=== PATIENT | female | born 1955 | race Caucasian/White ===

== ENCOUNTER 2019-08-26 14:12 | Outpatient (CLI) | payer MEDICARE, OTHER, SELFPAY ==
--- NOTE | ~2019-08-26 | MM_ITS ---
EXAMINATION: MM screening yony BI w mandy HISTORY: Screening mammogram TECHNIQUE: Craniocaudal and mediolateral oblique 3-D tomosynthesis images were obtained and synthetic 2-D images were generated. CAD analysis was submitted and interpreted. COMPARISON: Comparison to multiple prior studies sequentially, with oldest reviewed study dated 03/15. BREAST PARENCHYMAL COMPOSITION: The breasts are heterogeneously dense, which may obscure small masses . FINDINGS: There is no evidence of suspicious mass, calcification, or architectural distortion to sugg est malignancy in either breast. There has been no suspicious interval change. IMPRESSION: 1. No mammographic evidence of malignancy. 2. Recommend routine screening mammography in one year. BI-RADS Category 1: Negative Reviewed, dictated and finalized at location A. 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
--- NOTE | ~2019-08-26 | DEXA_ITS ---
Bone Density Report Name: Hue Batista Age: 63 Sex: Female Ethnicity: White Date of : 1955 Indication: postmenopausal; asthma or emphysema; hysterectomy; Referring Provider: DARYA, SAAD Ivey Study: Bone densitometry was performed. Exam Date: August 26, 2019 Accession number: [id number] Bone Density: Region BMD T-score Z-score Classification AP Spine (L1-L4) 1.033 -0.1 1.7 Normal Femoral Neck (Left) 0.782 -0.6 0.9 Normal Total Hip (Left) 0.960 0.1 1.4 Normal Total Hip Bilateral Avg 0.910 -0.3 1.0 Normal Femoral Neck (Right) 0.741 -1.0 0.6 Normal Total Hip (Right) 0.860 -0.7 0.6 Normal World Health Organization criteria for BMD impression classify patients as: Normal (T-score at or above -1.0), Osteopenia (T-score between -1.0 and -2.5), or Osteoporosis (T-score at or below -2.5). 10-year Fracture Risk: FRAX not reported because: All T-scores for Spine Total, Hip Total, Femoral Neck at or above -1.0 Clinical Information Provided by Patient: Has the following medical conditions: Asthma or Emphysema, Hysterectomy Patient maximum height was 64.5 Menopause Age: 48 No regular weight bearing exercise Drinks caffeinated beverages Onset of menses at age 12 Number of children 2 Impression: The patient has normal bone mass. Discussion: BONE DENSITY IS ABOVE THE MINIMUM DESIRABLE LEVEL AT ALL SKELETAL SITES TESTED. This patient?s bone mineral density is above the minimum desirable level (T-score -1.0 or better) at all sites measured. The patient should follow a healthful lifestyle (good nutrition with adequate calcium and vitamin D, and appropriate weight-bearing exercise). Follow-Up: Consider repeating this study in 5 years or sooner if there is some new clinical indication. Reported by: ROXY on 08/26/2019 2:55:00 PM. Reviewed, dictated and finalized at location ASangita JORGENSEN
== END 2019-08-26 14:13 | disposition home or self-care (01) ==
LOC: ANHIMG 14:21
PROVIDERS: PCP Family Medicine; Visit Provider Family Medicine
DX: Z12.31 Encounter for screening mammogram for malignant neoplasm of breast (principal); Z78.0 Asymptomatic menopausal state
CPT/HCPCS: 77063; 77067; 77080

== ENCOUNTER 2021-01-25 10:20 | Outpatient (CLI) | payer MEDICARE, OTHER, SELFPAY ==
--- NOTE | ~2021-01-25 | MM_ITS ---
EXAMINATION: MM screening yony BI w mandy HISTORY: Screening mammogram TECHNIQUE: Craniocaudal and mediolateral oblique 3-D tomosynthesis images were obtained and synthetic 2-D images were generated. CAD analysis was submitted and interpreted. COMPARISON: 08/26/2019, 03/28/2018 bilateral digital screening mammogram examinations BREAST PARENCHYMAL COMPOSITION: The breasts are heterogeneously dense, which may obscure small masses . FINDINGS: There is no evidence of suspicious mass, calcification, or architectural distortion to sugg est malignancy in either breast. There has been no suspicious interval change. IMPRESSION: 1. No mammographic evidence of malignancy. 2. Recommend routine screening mammography in one year. BI-RADS Category 1: Negative Reviewed, dictated and finalized at location A.
== END 2021-01-25 10:21 | disposition home or self-care (01) ==
LOC: ANHIMG 10:26
PROVIDERS: PCP Family Medicine; Visit Provider Family Medicine
DX: Z12.31 Encounter for screening mammogram for malignant neoplasm of breast (principal)
CPT/HCPCS: 77063; 77067

== ENCOUNTER 2021-11-16 14:35 | Outpatient (CLI) | payer MEDICARE, OTHER, SELFPAY ==
--- NOTE | ~2021-11-16 | XR_ITS ---
EXAM: XR hand RT min 3V HISTORY: PAIN IN RIGHT FINGERS/THUMB, NO INJURY . COMPARISON: None available. FINDINGS: Borderline decreased mineralization. No fracture or dislocation. No lytic or blastic lesio n. Moderate joint space narrowing and osteophytosis at the first interphalangeal joint and second DIP . Mild joint space narrowing in the remaining DIPs, proximal interphalangeal joints, the third MCP, t riscaphe and trapeziometacarpal joints. Ulnar negative variance. Subchondral cysts in the lunate and capitate. No erosion or periosteal change. Soft tissues within normal limits. 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 Other mild scattered degenera tive changes described above. Reviewed, dictated and finalized at location K. 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 Other m ild scattered degenerative changes described above.
== END 2021-11-16 14:36 | disposition home or self-care (01) ==
PROVIDERS: PCP Family Medicine; Visit Provider Family Medicine
DX: M19.041 Primary osteoarthritis, right hand (principal)
CPT/HCPCS: 73130

== ENCOUNTER 2022-06-29 09:04 | Outpatient (CLI) | payer MEDICARE, OTHER, SELFPAY ==
--- NOTE | ~2022-06-29 | MM_ITS ---
EXAMINATION: MM screening yony BI w mandy HISTORY: Screening mammogram TECHNIQUE: Craniocaudal and mediolateral oblique 3-D tomosynthesis images were obtained and synthetic 2-D images were generated. CAD analysis was submitted and interpreted. COMPARISON: 01/25/2021, 08/26/2019, 03/28/2018 bilateral screening mammogram examinations BREAST PARENCHYMAL COMPOSITION: The breasts are heterogeneously dense, which may obscure small masses . FINDINGS: There is no evidence of suspicious mass, calcification, or architectural distortion to sugg est malignancy in either breast. There has been no suspicious interval change. IMPRESSION: 1. No mammographic evidence of malignancy. 2. Recommend routine screening mammography in one year. BI-RADS Category 1: Negative Reviewed, dictated and finalized at location A. 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
== END 2022-06-29 09:05 | disposition home or self-care (01) ==
PROVIDERS: PCP Family Medicine; Visit Provider Physician Assistant
DX: Z12.31 Encounter for screening mammogram for malignant neoplasm of breast (principal)
CPT/HCPCS: 77063; 77067

== ENCOUNTER 2023-11-22 10:15 | Outpatient (CLI) | payer MEDICARE, OTHER, SELFPAY ==
--- NOTE | ~2023-11-22 | MM_ITS ---
EXAMINATION: MM screening yony BI w mandy HISTORY: Screening TECHNIQUE: Craniocaudal and mediolateral oblique 3-D tomosynthesis images were obtained and synthetic 2-D images were generated. CAD analysis was submitted and interpreted. COMPARISON: Comparison to multiple prior studies sequentially, with oldest reviewed study dated 03/15. BREAST PARENCHYMAL COMPOSITION: Dense: The breasts are heterogeneously dense, which may obscure small masses FINDINGS: There are bilateral developing subareolar asymmetries. There are no suspicious calcificatio ns. No architectural distortion. IMPRESSION: 1. Developing bilateral subareolar asymmetries. 2. Additional mammographic views and possible breast ultrasound are recommended. BI-RADS Category 0: Incomplete: Needs additional imaging evaluation. Reviewed, dictated and finalized at location A. IMPRESSION: 1. Developing bilateral subareolar asymmetries. 2. Additional mammographic views and possible breast ultrasound are recommended . BI-RADS Category 0: Incomplete: Needs additional imaging evaluation.
== END 2023-11-22 10:16 | disposition home or self-care (01) ==
PROVIDERS: PCP Family Medicine; Visit Provider Family Medicine
DX: Z12.31 Encounter for screening mammogram for malignant neoplasm of breast (principal); R92.8 Other abnormal and inconclusive findings on diagnostic imaging of breast
CPT/HCPCS: 77063; 77067

== ENCOUNTER 2023-12-12 10:45 | Outpatient (CLI) | payer MEDICARE, OTHER, SELFPAY ==
--- NOTE | ~2023-12-12 | MMUS_ITS ---
EXAMINATION: MM diagnostic yony BI w mandy, US breast BI complete HISTORY: Follow-up breast asymmetries TECHNIQUE: Additional 3-D tomosynthesis images of the breasts were performed and synthetic 2-D images were generated. CAD analysis was submitted and interpreted. High resolution complete bilateral breas t ultrasound was performed. COMPARISON: Comparison to multiple prior studies sequentially, with oldest reviewed study dated 2016 BREAST PARENCHYMAL COMPOSITION: Dense: The breasts are heterogeneously dense, which may obscure small masses FINDINGS: MAMMOGRAPHIC FINDINGS: There are no suspicious masses, calcifications or architectural distortion in either breast to sugges t malignancy. ULTRASOUND: Complete bilateral US of all 4 quadrants of the breasts and retroareolar region was reviewed. In the left breast at 12:00, 1 cm from the nipple, there is an irregular shaped hypoechoic 6 mm mass which i s partially cystic and partially solid. There are no posterior features or internal vascularity. No s onographic abnormality of the right breast to suggest malignancy. IMPRESSION: 1. Complex heterogeneous 6 mm left breast mass at 12:00, 1 cm from the nipple. 2. Ultrasound-guided left breast biopsy recommended. BI-RADS category 4, suspicious findings. Reviewed, dictated and finalized at location B. IMPRESSION: 1. Complex heterogeneous 6 mm left breast mass at 12:00, 1 cm from the nipple. 2. Ultrasound-guided left breast biopsy recommended. BI-RADS category 4, suspicious findings.
== END 2023-12-12 10:46 | disposition home or self-care (01) ==
LOC: ANHIMG 10:49
PROVIDERS: PCP Family Medicine; Visit Provider Family Medicine
DX: R92.8 Other abnormal and inconclusive findings on diagnostic imaging of breast (principal)
CPT/HCPCS: 76641; 77062; 77066; G0279

== ENCOUNTER 2024-01-23 08:46 | Outpatient (CLI) | payer MEDICARE, OTHER, SELFPAY ==
--- NOTE | ~2024-01-23 | MMUS_ITS ---
MM post biopsy diagnostic LT, US breast biopsy LT w image EXAMINATION: US GUIDED NEEDLE BIOPSY WITH VACUUM ASSISTANCE DATE: 01/23/2024 11:04 CDT INDICATION: Left breast mass seen on prior examination. Ultrasound-guided core biopsy is requested t o evaluate for malignancy. BREAST PARENCHYMAL COMPOSITION: Dense: The breasts are heterogeneously dense, which may obscure small masses TECHNIQUE AND FINDINGS: The risks and potential benefits of the procedure were discussed with the patient, and written inform ed consent was obtained. After sterile preparation of the left breast, 1% lidocaine was utilized for local anesthesia. 1% lidocaine with epinephrine was used for deep anesthesia. A 10G vacuum-assisted biopsy gun needle was advanced through to the outer edge of the region of inter est from a superior approach utilizing sonographic guidance. A total of three tissue core samples we re obtained through the lesion. An Inrad tissue marker clip was then placed at the biopsy site. Hemo stasis was achieved. The patient tolerated procedure well and there was no evidence of immediate complication. The patien t was given verbal instructions partly is from the department. Left breast mammograms to document ti ssue marker clip placement. The tissue samples were submitted to surgical pathology for histologic an alysis. IMPRESSION: 1. Successful ultrasound-guided vacuum-assisted biopsy of left breast mass with post procedure mammo gram for marker placement. Please refer to pathology report for histologic analysis. Reviewed, dictated and finalized at location B. IMPRESSION: 1. Successful ultrasound-guided vacuum-assisted biopsy of left breast mass wit h post procedure mammogram for marker placement. Please refer to pathology repo rt for histologic analysis.
== END 2024-01-23 08:47 | disposition home or self-care (01) ==
PROVIDERS: PCP Family Medicine; Visit Provider Nurse Practitioner Family
DX: R92.8 Other abnormal and inconclusive findings on diagnostic imaging of breast (principal)
CPT/HCPCS: 19083; 77065; 88305; A4648

== ENCOUNTER 2024-03-20 13:48 | Outpatient (CLI) | payer MEDICARE, OTHER, SELFPAY ==
--- NOTE | ~2024-03-20 | DEXA_ITS ---
Bone Density Report Name: NEAL MCLEAN Age: 68 Sex: Female Ethnicity: White Date of : 1955 Indication: postmenopausal; screening for osteoporosis; height loss; prior fracture; hysterectomy; Referring Provider: DARYA, SAAD Ivey Study: Bone densitometry was performed. Exam Date: March 20, 2024 Accession number: [id number] Bone Density: Region BMD T-score Z-score Classification AP Spine(L1-L4) 1.092 0.4 2.5 Normal Femoral Neck (Left) 0.702 -1.3 0.5 Osteopenia Total Hip (Left) 0.923 -0.2 1.4 Normal Femoral Neck (Right) 0.712 -1.2 0.6 Osteopenia Total Hip (Right) 0.862 -0.7 0.9 Normal Total Hip Mean 0.893 -0.5 1.2 Normal World Health Organization criteria for BMD impression classify patients as: Normal (T-score at or above -1.0), Osteopenia (T-score between -1.0 and -2.5), or Osteoporosis (T-score at or below -2.5). 10-year Fracture Risk: FRAX not reported because: Prior hip or vertebral fracture Previous Exams: Region Exam Age BMD T-score BMD Change BMD Change Date g/cm2 vs Baseline vs Previous AP Spine (L1-L4) 03/20/2024 68 1.092 0.4 0.059 (5.7%)* 0.059 (5.7%)* 08/26/2019 63 1.033 -0.1 Total Hip(Left) 03/20/2024 68 0.923 -0.2 -0.037 (-3.8%) -0.037 (-3.8%) 08/26/2019 63 0.960 0.1 Total Hip(Right) 03/20/2024 68 0.862 -0.7 0.002 (0.2%) 0.002 (0.2%) 08/26/2019 63 0.860 -0.7 *Denotes significance at 95% confidence level, LSC for AP Spine = 0.022 g/cm2, LSC for Total Hip = 0.027 g/cm2 Clinical Information Provided by Patient: Have had a previous hip or vertebral fracture Has had a low trauma fracture Has used the following medications: Vitamin D Has the following medical conditions: Hysterectomy, COPD Patient maximum height was 65 Menopause Age: 48 No regular weight bearing exercise Does not regularly consume dairy products Drinks caffeinated beverages Onset of menses at age 10 Number of children 2 Impression: The patient has low bone mass, based on the Left Femoral Neck T-score. The patient has risk factors, including: previous fracture. The BMD for the Total Hip(Left) decreased, changing by -3.8% since the last DXA exam. Discussion: INCREASED RISK OF FRACTURE DUE TO HISTORY OF FRACTURE. The patient's previous fracture puts the patient at high risk of a future fracture. In untreated patients, the risk of osteoporotic fracture increases approximately two-fold for each 1.0 SD decrease in T-score. Low bone density is not the only risk factor for fracture; also consider fac
== END 2024-03-20 13:49 | disposition home or self-care (01) ==
PROVIDERS: PCP Family Medicine; Visit Provider Family Medicine
DX: M85.89 Other specified disorders of bone density and structure, multiple sites (principal); Z78.0 Asymptomatic menopausal state
CPT/HCPCS: 77080

== ENCOUNTER 2024-11-20 09:09 | Outpatient (CLI) | payer MEDICARE, OTHER, SELFPAY ==
--- NOTE | ~2024-11-20 | CT_ITS ---
CT Scan of the Chest without Contrast: Clinical Indication: Abnormal finding of lung field Technique: Contiguous sections were acquired throughout the chest without intravenous contrast. Dose reduction technique was used on this scan by utilizing automated exposure control and iterative recon struction technique. The dose-length product (DLP) was 92.06 mGy-cm. Findings: There is no evidence of any significant mediastinal, hilar or axillary lymphadenopathy. Ascending aor ta is dilated to 4.6 cm. There is no evidence of pleural or pericardial effusion. There is minimal biapical scarring. There is additional right upper lobe scarring. There is moderate emphysema. Images through the upper abdomen reveal no abnormalities. Impression: Moderate emphysema with areas of pulmonary scarring, as above. No suspicious pulmonary nodule or cons olidation seen. 4.6 cm ascending aortic aneurysm. Reviewed, dictated and finalized at [facility]. Impression: Moderate emphysema with areas of pulmonary scarring, as above. No suspicious pu lmonary nodule or consolidation seen. 4.6 cm ascending aortic aneurysm.
--- OUTSIDE RECORDS SUMMARY | 2024-11-20 09:14 | XMS_ITS | Clinical Summary ---
Author Organization [facility] Address [address] [facility], [address] [id number] Phone Care Team Providers Care Director Of Entertainment Name Role Phone Mable Knott MD Primary Care Provider + Allergies Active Allergy Reactions Criticality Noted Date Comments Naproxen Anaphylaxis High 12/18/2018 Aspirin Anaphylaxis High 04/02/2018 Ibuprofen Anaphylaxis High 04/02/2018 Rofecoxib Unknown 04/22/2019 Medications ALPRAZolam (XANAX) 1 MG Tablet Take 1 mg by mouth 3 times daily. 5 8 Active furosemide (LASIX) 20 MG Tablet Take 20 mg by mouth every morning. 2 8 Active ALBUTEROL IN take by inhalation as needed. Active fluticasone (FLONASE) 50 MCG/ACT Suspension 1-2 Sprays by Nasal route Daily as needed. Use in each nostril as directed. Active Cyanocobalamin (B-12) 500 MCG Tablet Take 1 Tab by mouth every morning. Active apixaban (ELIQUIS) 5 MG Tablet Take by mouth daily. Active venlafaxine (EFFEXOR-XR) 150 MG CAPSULE SR 24 HR venlafaxine ER 150 mg capsule,extende d release 24 hr TAKE 1 CAPSULE BY MOUTH ONCE DAILY Active Cholecalciferol 2000 UNIT Capsule Take 2,000 Units by mouth. 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 08/28/2020 Normocytic anemia 08/28/2020 Hypercalcemia 08/28/2020 Iron deficiency anemia 08/12/2020 Immunizations Immunization Administration Dates Next Due Influenza, High-dose, Quadrivalent 03/21/2022, Influenza, high-dose, trivalent, PF 04/14/2020,0 03/28/2019 Pneumococcal Vaccine - 13 Valent 01/16/2019 TDAP Vaccine 05/01/2019 Family History Medical History Relation Name Comments Liver Disease Brother Diabetes Father Cancer Mother breast Cancer Sister breast Relation Name Status Comments Brother Father Mother Sister Alive Social History Tobacco Use Types Packs/Day Years Used Date Smoking Tobacco: Former Cigarettes 2 30 1 - 04/02/2007 Smokeless Tobacco: Never Tobacco Cessation:Counseling Given: Not Answered Alcohol Use Standard Drinks/Week Comments Yes 2 (1 standard drink = 0.6 oz pur e alcohol) Comments No Sex and Gender Information Value Date Recorded Sex Assigned at Not on file Legal Sex Female 9:33 AM CDT Gender Identity Not on file Sexual Orientation Not on file Occupation Industry Job Start Date Job End Date Retired Not on file Not on file Not on file Last Filed Vital Signs Vital Sign Reading Time Taken Comments Blood Pressure 132/88 05/18/2022 2:28 PM [employer] Pulse 77 05/18/2022 2:28 PM [employer] Temperature 36.4 C (97.6 F) 05/18/2022 2:28 PM [employer] Respiratory Rate 17 05/18/2022 2:28 PM [employer] Oxygen Saturation 95% 05/18/2022 2:28 PM [employer] Inhaled Oxygen Concentration - - Weight 71.5 kg (157 lb 11.2 oz) 05/18/2022 2:28 PM [employer] Height 165.1 cm (5' 5 ) 05/18/2022 2:28 PM [employer] Body Mass Index 26.24 05/18/2022 2:28 PM [employer] Plan of Treatment Health Maintenance Due Date Last Done Comments DEXA Bone Density 1955 Hepatitis C Virus (HCV) Screening 1955 Mammogram 1955 Cologuard 12/08/2003 Immunochemical Fecal Occult Blood 12/08/2003 Respiratory Syncytial Virus (RSV) Immunization (Adult) (1 - Risk 60-74 years 1-dose series) 2013 Pneumococcal Immunization (50+ years) (3 of 3 - PCV20 or PCV21) 01/17/2024 01/16/2019, 12/17/2013 Influenza Immunization (#1) 2024 09, 03/18/2022, 03/14/2021, Additional history exists SARS-COV-2 Immunization ( season) 2024 04/24/2021, 09/21/2020, 09/21/2020, Additional history exists Colonoscopy 04/02/2025 04/02/2020 Colorectal Cancer Screening 04/02/2025 04/02/2020 Pneumococcal Immunization Combined Discontinued 01/16/2019, 12/17/2013 Zoster Immunization Completed 03/28/2019, 12/30/2018, 01/31/2017 DTaP/Tdap/Td Immunization Discontinued 2018, 01/31/2017, 05/20/2008 Hepatitis B Immunization Aged Out No longer eligible based on patient's age to complete this topic Meningococcal Immunization (ACWY) Aged Out No longer eligible based on patient's age to complete this topic Rotavirus Immunization Aged Out No lo nger eligible based on patient's age to complete this topic Medical Devices Implanted Type Area Cell Stripper Device Identifier Shelf Expiration Date Model / Serial / Lot Clip 360 Resolution 235cm - [id number] Implanted:Qty: 1 on 04/02/2020 by Tahir Coleman DO at [facility] IMPLANT [employer] 01/11/2023 [id number] / [id number] / [id number] Insurance MEDICARE MEDICARE Care Teams Director Of Entertainment Relationship Specialty Start Date End Date Mable Knott MD [address] [place] [id number] PCP - General Family Medicine 03/26/18
--- OUTSIDE RECORDS SUMMARY | 2024-11-20 09:14 | XMS_ITS | Data Portability ---
Author Organization [facility], Main Office Address [address] [place] [address] Assessment No assessment recorded. Plan of Treatment Reminders Order Date Submit Date Provider Last Modified By Organization Details Last Modified Time Details Appointments None recorded. Lab lipid panel, serum 2023 024 WILSON Not available 4 22:18:28 hepatic function panel, serum 2023 WILSON Not available 4 22:18:22 BMP, serum or plasma 2023 024 WILSON Not available 4 22:18:17 PTH (parathyroi d hormone), intact, serum or plasma 2023 024 WILSON Not available 4 22:07:05 calcium, ionized, blood 2023 WILSON Not available 4 14:17:54 vitamin D, 25-hydroxy, total, serum 2023 024 WILSON Not available 4 07:51:18 vitamin B12, serum 2023 WILSON Not available 4 22:27:20 folate, serum 2023 024 WILSON Not available 4 22:27:35 iron + total iron-bindin g capacity (TIBC), serum 2023 024 WILSON Not available 4 22:18:07 ferritin, serum or plasma 2023 024 WILSON Not available 4 22:22:56 CBC w/ auto diff 2023 024 WILSON Not available 4 20:06:47 lipid panel, serum [address] (Lab), [address] [place], [address], 3 14:55:29 hepatic function panel, serum [address] (Lab), [address] [place], [address], 3 14:55:49 JANA (antinuclea r antibodies) screen, serum [address] (Lab), [address] [place], [address], 3 14:54:42 PTH (parathyroi d hormone), intact, serum or plasma [address] (Lab), [address] [place], [address], 3 14:52:32 calcium, ionized, blood [address] (Lab), [address] [place], [address], 3 14:52:51 BMP, serum or plasma [address] (Lab), [address] [place], [address], 3 14:55:00 vitamin D, 25-hydroxy, total, serum [address] (Lab), [address] [place], [address], 3 14:54:23 vitamin B12, serum [address] (Lab), [address] [place], [address], 3 14:56:06 folate, serum [address] (Lab), [address] [place], [address], 3 14:56:25 iron + total iron-bindin g capacity (TIBC), serum [address] (Lab), [address] [place], [address], 3 14:53:06 ferritin, serum or plasma [address] (Lab), [address] [place], [address], 3 14:54:04 CBC w/ auto diff [address] (Lab), [address] [place], [address], 3 14:53:27 Referral None recorded. Procedures None recorded. Surgeries None recorded. Imaging DEXA - *Please call pt to schedule* [email or web address] [place] [address] (Imaging), [address] [facility] [address], [address], 4 09:53:19 Medication Orders alprazolam 1 mg tablet 2023 024 [facility] #[id number], [address] , [place], [place], [id number], 4 15:03:27 venlafaxine ER 150 mg capsule,ext ended release 24 hr 2023 [facility] #[id number], [address], [place], [place], [id number], 15:03:10 Eliquis 5 mg tablet 2023 024 [facility] #[id number], [address], [place], [place], [id number], 14:45:13 Patient TargetsNo targets recorded. Patient Instructions Encounter Date Encounter Id Patient Instructions Last Modified By Organization Details Last Modified Time 09/27/2022 [id number] dementia rating scale-2* Not available 09/27/2022 18:09:21 alcohol misuse* Not available 09/27/2022 18:09:31 depression screening* Not available 09/27/2022 18:09:41 multi-dimensiona l health assessment questionnaire* Not available 09/27/2022 18:09:12 Personalized a lt Plan and Screening Recommendations Advance Directives - Do you have one? No Advance Directives - Do we have your advance directive on file in your health record? Primary Prevention/Interven tion (prevents or decreases the chance of common diseases from occurring) Smoking Risk: Non Smoker Alcohol Misuse Screening: Negative Weight: Appropriate Physical activity: Need more exercise/physical activity minimum of 10-20 minutes of activity that causes mild breathlessness/day Nutrition: Good Fall Risk (screened today): Low Refer to attached handout Preventing Falls: After your Visit Vaccines Pneumococcal: Ordered Recommended today Recommended today, but you have declined No further needed Influenza: Your next one in the fall of this year Chronic Disease Risks Stroke: Low Risk I have no recommendations Heart Attack: Low risk I have no recommendations Clogging of the Arteries: Low risk I have no recommendations Diabetes: Low Risk I have no recommendations Secondary Prevention/Interven tion (detects treatable diseases before they may cause symptoms, disability, or ) Breast Cancer Screening with mammogram: Cervical/Uterine/Ov tosin Cancer Screening: No screening necessary Osteoporosis Screening: Your next DEXA in: Ordered Recomme nded today Date Screening Last Performed: Per patient, a couple years ago Colon Cancer Screening: Colonoscopy Date Screening Last Performed: 04/02/2020 with repeat recommendation for 5 years Eye Disease Screening: Ordered Recommended today Dementia Risk: Low I have no recommendations Depression Screening: Negative Active diagnosis, Continue current treatment plan Not available 10/02/2022 11:26:32 10/02/2023 [id number] Personalized [facility] Plan and Screening Recommendations Advance Directives - Do you have one? Advance Directives - Do we have your advance directive on file in your health record? Primary Prevention/Interven tion (prevents or decreases the chance of common diseases from occurring) Smoking Risk: Alcohol Misuse Screening: Weight: Physical activity: Nutrition: Fall Risk (screened today): Vaccines Pneumococcal: Influenza: Your next one in the fall of this year Chronic Disease Risks Stroke: I have no recommendations Act elis diagnosis, Continue current treatment plan Heart Attack: I have no recommendations Act elis diagnosis, Continue current treatment plan Clogging of the Arteries: I have no recommendations Act elis diagnosis, Continue current treatment plan Diabetes: Active diagnosis, Continue current treatment plan Secondary Prevention/Interven tion (detects treatable diseases before they may cause symptoms, disability, or ) Breast Cancer Screening with mammogram: Cervical/Uterine/Ov tosni Cancer Screening: Osteoporosis Screening: Date Screening Last Performed: Colon Cancer Screening: Date Screening Last Performed: Eye Disease Screening: Dementia Risk: Depression Screening: Active diagnosis, Continue current treatment plan Not available 10/02/2023 19:23:50 Reason for Referral None Reported. Results Created Date Observation Date Name Description Value Unit Range Abnormal Flag Note LastModifiedBy Organization Detail LastModifiedTime 03/29/20 23 03/29/2023 CBC/C OMPLE TE BLD COUNT W/DIF F white blood cells 4.4 x10'3 /uL 4.2-10 .8 Not Available [facility] (Lab) [address] [place], [address], 03/29/2023 19:57:56 03/29/2003/29/2023 CBC/C OMPLE TE BLD COUNT W/DIF F red blood cells 4.88 x10'6 /uL 3.80-5 .20 Not Available [facility] (Lab) [address] [place], [address], 03/29/2023 19:57:56 03/29/2003/29/2023 CBC/C OMPLE TE BLD COUNT W/DIF F hemoglobin 14.9 g/dL 12.0-1 5.6 Not Available [facility] (Lab) [address] [place], [address], 03/29/2023 19:57:56 03/29/2003/29/2023 CBC/C OMPLE TE BLD COUNT W/DIF F hematocrit 46.5 % 35.7-4 5.7 high Not Available [facility] (Lab) [address] [place], [address], 03/29/2023 19:57:56 03/29/2003/29/2023 CBC/C OMPLE TE BLD COUNT W/DIF F mean red cell volume 95.3 fL 82.0-9 9.0 Not Available [facility] (Lab) [address] [place], [address], 03/29/2023 19:57:56 03/29/2003/29/2023 CBC/C OMPLE TE BLD COUNT W/DIF F mean red cell hemoglobin 30.5 pg 27.0-3 3.0 Not Available [facility] (Lab) [address] [place], [address], 03/29/2023 19:57:56 03/29/2003/29/2023 CBC/C OMPLE TE BLD COUNT W/DIF F mean RBC HGB concentratio n 32.0 g/dL 31.0-3 6.0 Not Available [facility] (Lab) [address] [place], [address], 03/29/2023 19:57:56 03/29/2003/29/2023 CBC/C OMPLE TE BLD COUNT W/DIF F red cell distribution width 13.1 % 11.8-1 5.5 Not Available [facility] (Lab) [address] [place], [address], 03/29/2023 19:57:56 03/29/2003/29/2023 CBC/C OMPLE TE BLD COUNT W/DIF F platelets 332 x10'3 /uL 150-40 0 Not Available [facility] (Lab) [address] [place], [address], 03/29/2023 19:57:56 03/29/2003/29/2023 CBC/C OMPLE TE BLD COUNT W/DIF F mean platelet volume 10.0 fL 9.0-12 .4 Not Available [facility] (Lab) [address] [place], [address], 03/29/2023 19:57:56 03/29/2003/29/2023 CBC/C OMPLE TE BLD COUNT W/DIF F neutrophils 44.0 % 39.0-7 2.0 Not Available [facility] (Lab) [address] [place], [address], 03/29/2023 19:57:56 03/29/2003/29/2023 CBC/C OMPLE TE BLD COUNT W/DIF F lymphocytes 40.3 % 16.0-4 7.0 Not Available [facility] (Lab) [address] [place], [address], 03/29/2023 19:57:56 03/29/2003/29/2023 CBC/C OMPLE TE BLD COUNT W/DIF F monocytes 9.2 % 5.0-12 .0 Not Available [facility] (Lab) [address] [place], [address], 03/29/2023 19:57:56 03/29/20 23 03/29/2023 CBC/C OMPLE TE BLD COUNT W/DIF F eosinophils 5.6 % 1.0-7. 0 Not Available [facility] (Lab) [address] [place], [address], 03/29/2023 19:57:56 03/29/20 23 03/29/2023 CBC/C OMPLE TE BLD COUNT W/DIF F basophils 0.7 % 0.0-2. 0 Not Available [facility] (Lab) [address] [place], [address], 03/29/2023 19:57:56 03/29/2003/29/2023 CBC/C OMPLE TE BLD COUNT W/DIF F immature granulocytes 0.2 % 0.00-0 .50 Not Available [facility] (Lab) [address] [place], [address], 03/29/2023 19:57:56 03/29/2003/29/2023 CBC/C OMPLE TE BLD COUNT W/DIF F neutrophils, absolute count 1.95 x10'3 /uL 1.5-8. 0 Not Available [facility] (Lab) [address] [place], [address], 03/29/2023 19:57:56 03/29/2003/29/2023 CBC/C OMPLE TE BLD COUNT W/DIF F lymphocytes, absolute count 1.79 x10'3 /uL 1.07-3 .43 Not Available [facility] (Lab) [address] [place], [address], 03/29/2023 19:57:56 03/29/2003/29/2023 CBC/C OMPLE TE BLD COUNT W/DIF F monocytes, absolute count 0.41 x10'3 /uL 0.29-0 .99 Not Available [facility] (Lab) [address] [place], [address], 03/29/2023 19:57:56 03/29/20 23 03/29/2023 CBC/C OMPLE TE BLD COUNT W/DIF F eosinophils, absolute count 0.25 x10'3 /uL 0.02-0 .53 Not Available [facility] (Lab) [address] [place], [address], 03/29/2023 19:57:56 03/29/20 23 03/29/2023 CBC/C OMPLE TE BLD COUNT W/DIF F basophils, absolute count 0.03 x10'3 /uL 0.01-0 .08 Not Available [facility] (Lab) [address] [place], [address], 03/29/2023 19:57:56 03/29/20 23 03/29/2023 CBC/C OMPLE TE BLD COUNT W/DIF F immature granulocytes ,absolute 0.01 x10'3 /uL 0.00-0 .05 Not Available [facility] (Lab) [address] [place], [address], 03/29/2023 19:57:56 03/29/2003/29/2023 CBC/C OMPLE TE BLD COUNT W/DIF F nucleated red blood cells 0.0 % -0 Not Available [facility] (Lab) [address] [place], [address], 03/29/2023 19:57:56 03/29/20 23 03/29/2023 CBC/C OMPLE TE BLD COUNT W/DIF F NRBC# 0.00 x10'3 /uL Not Available [facility] (Lab) [address] [place], [address], 03/29/2023 19:57:56 03/29/20 23 03/29/2023 PARAT HY.HO RM(PT H)INT ACT-W /O CA intact parathyroid hormone 130.1 pg/mL 24.0-7 8.0 high Pleas e note new refer ence range effec tive 07/28 . Not Available [facility] (Lab) [address] [place], [address], 03/29/2023 20:49:52 03/29/2003/29/2023 VITAM IN D 25-HY DROXY vd25oh 48.3 NG/mL 30-100 Vitam in D Statu s: Defic ient: <20 ng/mL Insuf ficie nt: 20-29 ng/mL Suffi cient : 30-10 0 ng/mL Not Available [facility] (Lab) [address] [place], [address], 03/29/2023 21:03:26 03/29/2003/29/2023 IRON/ TIBC PANEL total iron binding capacity 319 mcg/d L 265-47 5 Not Available [facility] (Lab) [address] [place], [address], 03/29/2023 21:24:56 03/29/2003/29/2023 IRON/ TIBC PANEL % transferrin saturation 39 % 20-55 Not Available [facility] (Lab) [address] [place], [address], 03/29/2023 21:24:56 03/29/20 23 03/29/2023 IRON/ TIBC PANEL unsaturated iron bind capacity 193 mcg/d L 126-38 2 Not Available [facility] (Lab) [address] [place], [address], 03/29/2023 21:24:56 03/29/20 23 03/29/2023 IRON/ TIBC PANEL iron 126 mcg/d L 42-175 Not Available [facility] (Lab) [address] [place], [address], 03/29/2023 21:24:56 03/29/20 23 03/29/2023 LIPID PANEL cholesterol 211 mg/dL 140-19 9 high NIH DANIEL NSUS RECOM MENDA TION FOR KARTIK STERO L: ADULT CHILD LOW RISK: <200 <170 BORDE RLINE : <200- 239 ----- HIGH RISK: >240 >200 Not Available [facility] (Lab) [address] [place], [address], 03/29/2023 21:23:08 03/29/20 23 03/29/2023 LIPID PANEL triglyceride s 82 mg/dL 0-150 NIH DANIEL NSUS REPOR T RECOM MENDA TION FOR TRIGL YCERI JOSELINE: ADULT CHILD LOW RISK: <150 ----- BODER LINE: 150-1 99 ----- HIGH RISK: >200 ----- Not Available [facility] (Lab) [address] [place], [address], 03/29/2023 21:23:08 03/29/20 23 03/29/2023 LIPID PANEL HDL cholesterol 86 mg/dL 40- Not Available [facility] (Lab) [address] [place], [address], 03/29/2023 21:23:08 03/29/20 23 03/29/2023 LIPID PANEL LDL cholesterol, calculated 109 mg/dL 0-130 NIH DANIEL NSUS REPOR T RECOM MENDA TIONS FOR LDL: ADULT CHILD LOW RISK <130 <110 (OPTI MAL LDL) <100 ----- BORDE RLINE : 130-1 59 ----- HIGH RISK: >160 >130 A TRIGL YCERI DE RESUL T >400 INVAL IDATE S THE CALCU LATIO N FOR LDL FRACT IONAT ION - THE LDL RESUL T WILL NOT BE REPOR MICAH. Not Available [facility] (Lab) [address] [place], [address], 03/29/2023 21:23:08 03/29/20 23 03/29/2023 HEPAT IC/LI NANCY PANEL alkaline phosphatase 68 U/L 38-126 Not Available [facility] (Lab) [address] [place], [address], 03/29/2023 21:23:19 03/29/20 23 03/29/2023 HEPAT IC/LI NANCY PANEL alanine aminotransfe rase 19 U/L 0-35 Not Available [facility] (Lab) [address] [place], [address], 03/29/2023 21:23:19 03/29/20 23 03/29/2023 HEPAT IC/LI NANCY PANEL aspartate aminotransfe rase 41 U/L 15-37 high Not Available [facility] (Lab) [address] [place], [address], 03/29/2023 21:23:19 03/29/20 23 03/29/2023 HEPAT IC/LI NANCY PANEL bilirubin, total 0.40 mg/dL 0.20-1 .30 Not Available [facility] (Lab) [address] [place], [address], 03/29/2023 21:23:19 03/29/20 23 03/29/2023 HEPAT IC/LI NANCY PANEL bilirubin, conjugated (direct) 0.00 mg/dL 0.00-0 .30 Not Available [facility] (Lab) [address] [place], [address], 03/29/2023 21:23:19 03/29/20 23 03/29/2023 HEPAT IC/LI NANCY PANEL biliurubin,u ncong. (indirect) 0.30 mg/dL 0.00-1 .1 Not Available [facility] (Lab) [address] [place], [address], 03/29/2023 21:23:19 03/29/20 23 03/29/2023 HEPAT IC/LI NANCY PANEL total protein 7.1 g/dL 6.3-8. 2 Not Available [facility] (Lab) [address] [place], [address], 03/29/2023 21:23:19 03/29/20 23 03/29/2023 HEPAT IC/LI NANCY PANEL albumin 4.4 g/dL 3.0-4. 4 Not Available [facility] (Lab) [address] [place], [address], 03/29/2023 21:23:19 03/29/20 23 03/29/2023 HEPAT IC/LI NANCY PANEL globulin 2.7 g/dL 2.6-4. 2 Not Available [facility] (Lab) [address] [place], [address], 03/29/2023 21:23:19 03/29/20 23 03/29/2023 HEPAT IC/LI NANCY PANEL A/G ratio 1.6 ratio 1.0-2. 0 Not Available [facility] (Lab) [address] [place], [address], 03/29/2023 21:23:19 03/29/20 23 03/29/2023 BASIC METAB OLIC PANEL sodium 133 mmol/ L 137-14 5 low Not Available [facility] (Lab) [address] [place], [address], 03/29/2023 21:23:24 03/29/20 23 03/29/2023 BASIC METAB OLIC PANEL potassium 4.1 mmol/ L 3.5-5. 1 Not Available [facility] (Lab) [address] [place], [address], 03/29/2023 21:23:24 03/29/20 23 03/29/2023 BASIC METAB OLIC PANEL chloride 97 mmol/ L 98-107 low Not Available [facility] (Lab) [address] [place], [address], 03/29/2023 21:23:24 03/29/20 23 03/29/2023 BASIC METAB OLIC PANEL carbon dioxide 29 mmol/ L 22-30 Not Available [facility] (Lab) [address] [place], [address], 03/29/2023 21:23:24 03/29/20 23 03/29/2023 BASIC METAB OLIC PANEL anion gap 11.1 mmol/ L 14-22 low Not Available [facility] (Lab) [address] [place], [address], 03/29/2023 21:23:24 03/29/20 23 03/29/2023 BASIC METAB OLIC PANEL glucose 95 mg/dL 70-99 Not Available [facility] (Lab) [address] [place], [address], 03/29/2023 21:23:24 03/29/20 23 03/29/2023 BASIC METAB OLIC PANEL BUN 7 mg/dL 8-19 low Not Available [facility] (Lab) [address] [place], [address], 03/29/2023 21:23:24 03/29/20 23 03/29/2023 BASIC METAB OLIC PANEL creatinine 0.62 mg/dL 0.66-1 .25 low Not Available [facility] (Lab) [address] [place], [address], 03/29/2023 21:23:24 03/29/2003/29/2023 BASIC METAB OLIC PANEL GFR >60 Refer ence Range : Orient ge GFR Healt hy Adult : >60 mL/mi n/1.7 3 m2 Chron ic Kidne y Disea se: 15-60 mL/mi n/1.7 3 m2 Kidne y Failu re: <15/m L/min /1.73 m2 www.n iddk. nih.g ov The MDRD study equat ion has not been valid ated in child yazmin <18 years of age; pregn ant women ; the elder ly >85 years of age; or in some racia l or ethni c subgr oups, such as Hispa nics. Outsi de the valid ated dominga eters , estim ated GFR is less accur ate, requi ring clini robert judgm ent on a case- by-ca se basis . Clini robert inter preta tion for other races and ages must be made by the clini tori. The MDRD study equat ion has not been valid ated for the evalu ation of serum creat inine relat ed to nutri kaitlynn l statu s or medic ation usage . For perso ns <18 years of age, a pedia tric GFR calcu lator is avail able on the [facility] websi te: https ://cata w.amira jacksony.o rg/pr ofess ional s/kdo qi/gf r_cal culat or Not Available [facility] (Lab) [address] [place], [address], 03/29/2023 21:23:24 03/29/20 23 03/29/2023 BASIC METAB OLIC PANEL calcium 10.5 mg/dL 8.4-10 .2 high Not Available [facility] (Lab) [address] [place], [address], 03/29/2023 21:23:24 03/29/20 23 03/29/2023 VITAM IN B12 (LALITO WILL ) vb12 307 pg/mL 239-93 1 Not Available [facility] (Lab) [address] [place], [address], 03/29/2023 22:47:19 03/29/20 23 03/29/2023 FOLAT E, SERUM /PLAS MA folate 6.81 NG/mL 2.76-2 0.0 Not Available [facility] (Lab) [address] [place], [address], 03/29/2023 21:46:21 03/29/20 23 03/29/2023 MIKI TIN ferritin 87 NG/mL 11.1-2 64 Not Available [facility] (Lab) [address] [place], [address], 03/29/2023 22:02:24 03/29/20 23 04/02/2023 CALCI UM, IONIZ ED/LC calcium, ionized, serum 4.9 mg/dL 4.5-5. 6 Perfo rmed at: [facility] [address] [place] [address] Lab Direc tor: Shiva etienne PhD, Phone : [phone] Not Available [facility] (Lab) [address] [place], [address], 04/02/2023 11:10:03 03/29/2004/03/2023 JANA BY IFA RFX TITER /JAYASHREE YOVANI antinuclear antibodies, ifa Negati ve Negat elis <1:80 Borde rline 1:80 Posit elis >1:80 ICAP nomisrael rashid re: AC-0 For more infor jeanette sotomayor about Hep-2 cell patte rns use ANApa ttern s.org , the offic ial florian te for the Inter natio nal Conse nsus on Antin uclea r Antib stacia (JANA) Patte rns (ICAP ). Perfo rmed at: [facility] [address] [place] [address] Lab Direc tor: Shiva etienne PhD, Phone : [phone] Not Available [facility] (Lab) [address] [place], [address], 04/03/2023 08:16:36 04/16/2004/16/2023 BASIC METAB OLIC PANEL sodium 134 mmol/ L 137-14 5 low Not Available [facility] (Lab) [address] [place], [address], 04/16/2023 20:04:06 04/16/2004/16/2023 BASIC METAB OLIC PANEL potassium 4.3 mmol/ L 3.5-5. 1 Not Available [facility] (Lab) [address] [place], [address], 04/16/2023 20:04:06 04/16/20 23 04/16/2023 BASIC METAB OLIC PANEL chloride 98 mmol/ L 98-107 Not Available [facility] (Lab) [address] [place], [address], 04/16/2023 20:04:06 04/16/2004/16/2023 BASIC METAB OLIC PANEL carbon dioxide 33 mmol/ L 22-30 high Not Available [facility] (Lab) [address] [place], [address], 04/16/2023 20:04:06 04/16/2004/16/2023 BASIC METAB OLIC PANEL anion gap 7.3 mmol/ L 14-22 low Not Available [facility] (Lab) [address] [place], [address], 04/16/2023 20:04:06 04/16/2004/16/2023 BASIC METAB OLIC PANEL glucose 103 mg/dL 70-99 high Not Available [facility] (Lab) [address] [place], [address], 04/16/2023 20:04:06 04/16/2004/16/2023 BASIC METAB OLIC PANEL BUN 12 mg/dL 8-19 Not Available [facility] (Lab) [address] [place], [address], 04/16/2023 20:04:06 04/16/2004/16/2023 BASIC METAB OLIC PANEL creatinine 0.64 mg/dL 0.66-1 .25 low Not Available [facility] (Lab) [address] [place], [address], 04/16/2023 20:04:06 04/16/2004/16/2023 BASIC METAB OLIC PANEL GFR >60 Refer ence Range : Orient ge GFR Healt hy Adult : >60 mL/mi n/1.7 3 m2 Chron ic Kidne y Disea se: 15-60 mL/mi n/1.7 3 m2 Kidne y Failu re: <15/m L/min /1.73 m2 www.n iddk. nih.g ov The MDRD study equat ion has not been valid ated in child yazmin <18 years of age; pregn ant women ; the elder ly >85 years of age; or in some racia l or ethni c subgr oups, such as Hispa nics. Outsi de the valid ated dominga eters , estim ated GFR is less accur ate, requi ring clini robert judgm ent on a case- by-ca se basis . Clini robert inter preta tion for other races and ages must be made by the clini tori. The MDRD study equat ion has not been valid ated for the evalu ation of serum creat inine relat ed to nutri kaitlynn l statu s or medic ation usage . For perso ns <18 years of age, a pedia tric GFR calcu lator is avail able on the [facility] websi te: https ://cata w.kid adan.o rg/pr ofess ional s/kdo qi/gf r_cal culat or Not Available [facility] (Lab) [address] [place], [address], 04/16/2023 20:04:06 04/16/20 23 04/16/2023 BASIC METAB OLIC PANEL calcium 10.5 mg/dL 8.4-10 .2 high Not Available [facility] (Lab) [address] [place], [address], 04/16/2023 20:04:06 10/02/19 24 10/02/2023 CBC/C OMPLE TE BLD COUNT W/DIF F white blood cells 5.4 x10'3 /uL 4.2-10 .8 Not Available [facility] (Lab) [address] [place], [address], 10/02/2023 20:06:47 10/02/19 24 10/02/2023 CBC/C OMPLE TE BLD COUNT W/DIF F red blood cells 4.97 x10'6 /uL 3.80-5 .20 Not Available [facility] (Lab) [address] [place], [address], 10/02/2023 20:06:47 10/02/19 24 10/02/2023 CBC/C OMPLE TE BLD COUNT W/DIF F hemoglobin 15.4 g/dL 12.0-1 5.6 Not Available [facility] (Lab) [address] [place], [address], 10/02/2023 20:06:47 10/02/19 24 10/02/2023 CBC/C OMPLE TE BLD COUNT W/DIF F hematocrit 46.6 % 35.7-4 5.7 high Not Available [facility] (Lab) [address] [place], [address], 10/02/2023 20:06:47 10/02/19 24 10/02/2023 CBC/C OMPLE TE BLD COUNT W/DIF F mean red cell volume 93.8 fL 82.0-9 9.0 Not Available [facility] (Lab) [address] [place], [address], 10/02/2023 20:06:47 10/02/19 24 10/02/2023 CBC/C OMPLE TE BLD COUNT W/DIF F mean red cell hemoglobin 31.0 pg 27.0-3 3.0 Not Available [facility] (Lab) [address] [place], [address], 10/02/2023 20:06:47 10/02/19 24 10/02/2023 CBC/C OMPLE TE BLD COUNT W/DIF F mean RBC HGB concentratio n 33.0 g/dL 31.0-3 6.0 Not Available [facility] (Lab) [address] [place], [address], 10/02/2023 20:06:47 10/02/19 24 10/02/2023 CBC/C OMPLE TE BLD COUNT W/DIF F red cell distribution width 13.2 % 11.8-1 5.5 Not Available [facility] (Lab) [address] [place], [address], 10/02/2023 20:06:47 10/02/19 24 10/02/2023 CBC/C OMPLE TE BLD COUNT W/DIF F platelets 324 x10'3 /uL 150-40 0 Not Available [facility] (Lab) [address] [place], [address], 10/02/2023 20:06:47 10/02/19 24 10/02/2023 CBC/C OMPLE TE BLD COUNT W/DIF F mean platelet volume 9.9 fL 9.0-12 .4 Not Available [facility] (Lab) [address] [place], [address], 10/02/2023 20:06:47 10/02/19 24 10/02/2023 CBC/C OMPLE TE BLD COUNT W/DIF F neutrophils 47.9 % 39.0-7 2.0 Not Available [facility] (Lab) [address] [place], [address], 10/02/2023 20:06:47 10/02/19 24 10/02/2023 CBC/C OMPLE TE BLD COUNT W/DIF F lymphocytes 38.3 % 16.0-4 7.0 Not Available [facility] (Lab) [address] [place], [address], 10/02/2023 20:06:47 10/02/19 24 10/02/2023 CBC/C OMPLE TE BLD COUNT W/DIF F monocytes 7.7 % 5.0-12 .0 Not Available [facility] (Lab) [address] [place], [address], 10/02/2023 20:06:47 10/02/19 24 10/02/2023 CBC/C OMPLE TE BLD COUNT W/DIF F eosinophils 5.2 % 1.0-7. 0 Not Available [facility] (Lab) [address] [place], [address], 10/02/2023 20:06:47 10/02/19 24 10/02/2023 CBC/C OMPLE TE BLD COUNT W/DIF F basophils 0.7 % 0.0-2. 0 Not Available [facility] (Lab) [address] [place], [address], 10/02/2023 20:06:47 10/02/19 24 10/02/2023 CBC/C OMPLE TE BLD COUNT W/DIF F immature granulocytes 0.2 % 0.00-0 .50 Not Available [facility] (Lab) [address] [place], [address], 10/02/2023 20:06:47 10/02/19 24 10/02/2023 CBC/C OMPLE TE BLD COUNT W/DIF F neutrophils, absolute count 2.60 x10'3 /uL 1.5-8. 0 Not Available [facility] (Lab) [address] [place], [address], 10/02/2023 20:06:47 10/02/19 24 10/02/2023 CBC/C OMPLE TE BLD COUNT W/DIF F lymphocytes, absolute count 2.08 x10'3 /uL 1.07-3 .43 Not Available [facility] (Lab) [address] [place], [address], 10/02/2023 20:06:47 10/02/19 24 10/02/2023 CBC/C OMPLE TE BLD COUNT W/DIF F monocytes, absolute count 0.42 x10'3 /uL 0.29-0 .99 Not Available [facility] (Lab) [address] [place], [address], 10/02/2023 20:06:47 10/02/19 24 10/02/2023 CBC/C OMPLE TE BLD COUNT W/DIF F eosinophils, absolute count 0.28 x10'3 /uL 0.02-0 .53 Not Available [facility] (Lab) [address] [place], [address], 10/02/2023 20:06:47 10/02/19 24 10/02/2023 CBC/C OMPLE TE BLD COUNT W/DIF F basophils, absolute count 0.04 x10'3 /uL 0.01-0 .08 Not Available [facility] (Lab) [address] [place], [address], 10/02/2023 20:06:47 10/02/19 24 10/02/2023 CBC/C OMPLE TE BLD COUNT W/DIF F immature granulocytes ,absolute 0.01 x10'3 /uL 0.00-0 .05 Not Available [facility] (Lab) [address] [place], [address], 10/02/2023 20:06:47 10/02/19 24 10/02/2023 CBC/C OMPLE TE BLD COUNT W/DIF F nucleated red blood cells 0.0 % -0 Not Available [facility] (Lab) [address] [place], [address], 10/02/2023 20:06:47 10/02/19 24 10/02/2023 CBC/C OMPLE TE BLD COUNT W/DIF F NRBC# 0.00 x10'3 /uL Not Available [facility] (Lab) [address] [place], [address], 10/02/2023 20:06:47 10/02/19 24 10/02/2023 PARAT HY.HO RM(PT H)INT ACT-W /O CA intact parathyroid hormone 133.9 pg/mL 24.0-7 8.0 high Pleas e note new refer ence range effec tive 07/28 . Not Available [facility] (Lab) [address] [place], [address], 10/02/2023 22:07:04 10/02/19 24 10/02/2023 VITAM IN D 25-HY DROXY vd25oh 44.3 NG/mL 30-100 Vitam in D Statu s: Defic ient: <20 ng/mL Insuf ficie nt: 20-29 ng/mL Suffi cient : 30-10 0 ng/mL Not Available Not Available 10/02/2023 22:07:30 10/02/19 24 10/02/2023 IRON/ TIBC PANEL total iron binding capacity 296 mcg/d L 265-47 5 Not Available [facility] (Lab) [address] [place], [address], 10/02/2023 22:19:29 10/02/19 24 10/02/2023 IRON/ TIBC PANEL % transferrin saturation 34 % 20-55 Not Available [facility] (Lab) [address] [place], [address], 10/02/2023 22:19:29 10/02/19 24 10/02/2023 IRON/ TIBC PANEL unsaturated iron bind capacity 196 mcg/d L 126-38 2 Not Available [facility] (Lab) [address] [place], [address], 10/02/2023 22:19:29 10/02/19 24 10/02/2023 IRON/ TIBC PANEL iron 100 mcg/d L 42-175 Not Available [facility] (Lab) [address] [place], [address], 10/02/2023 22:19:29 10/02/19 24 10/02/2023 BASIC METAB OLIC PANEL sodium 137 mmol/ L 137-14 5 Not Available [facility] (Lab) [address] [place], [address], 10/02/2023 22:18:17 10/02/19 24 10/02/2023 BASIC METAB OLIC PANEL potassium 4.1 mmol/ L 3.5-5. 1 Not Available [facility] (Lab) [address] [place], [address], 10/02/2023 22:18:17 10/02/19 24 10/02/2023 BASIC METAB OLIC PANEL chloride 102 mmol/ L 98-107 Not Available [facility] (Lab) [address] [place], [address], 10/02/2023 22:18:17 10/02/19 24 10/02/2023 BASIC METAB OLIC PANEL carbon dioxide 32 mmol/ L 22-30 high Not Available [facility] (Lab) [address] [place], [address], 10/02/2023 22:18:17 10/02/19 24 10/02/2023 BASIC METAB OLIC PANEL anion gap 7.1 mmol/ L 14-22 low Not Available [facility] (Lab) [address] [place], [address], 10/02/2023 22:18:17 10/02/19 24 10/02/2023 BASIC METAB OLIC PANEL glucose 92 mg/dL 70-99 Not Available [facility] (Lab) [address] [place], [address], 10/02/2023 22:18:17 10/02/19 24 10/02/2023 BASIC METAB OLIC PANEL BUN 9 mg/dL 8-19 Not Available [facility] (Lab) [address] [place], [address], 10/02/2023 22:18:17 10/02/19 24 10/02/2023 BASIC METAB OLIC PANEL creatinine 0.65 mg/dL 0.66-1 .25 low Not Available [facility] (Lab) [address] [place], [address], 10/02/2023 22:18:17 10/02/19 24 10/02/2023 BASIC METAB OLIC PANEL GFR >60 Refer ence Range : Orient ge GFR Healt hy Adult : >60 mL/mi n/1.7 3 m2 Chron ic Kidne y Disea se: 15-60 mL/mi n/1.7 3 m2 Kidne y Failu re: <15/m L/min /1.73 m2 www.n iddk. nih.g ov The MDRD study equat ion has not been valid ated in child yazmin <18 years of age; pregn ant women ; the elder ly >85 years of age; or in some racia l or ethni c subgr oups, such as Hispa nics. Outsi de the valid ated dominga eters , estim ated GFR is less accur ate, requi ring clini robert judgm ent on a case- by-ca se basis . Clini robert inter preta tion for other races and ages must be made by the clini tori. The MDRD study equat ion has not been valid ated for the evalu ation of serum creat inine relat ed to nutri kaitlynn l statu s or medic ation usage . For perso ns <18 years of age, a pedia tric GFR calcu lator is avail able on the [facility] websi te: https ://cata arellano.mayra meeks/sofya mathewal s/kdo qi/gf r_cal culat or Not Available [facility] (Lab) [address] [place], [address], 10/02/2023 22:18:17 10/02/19 24 10/02/2023 BASIC METAB OLIC PANEL calcium 10.4 mg/dL 8.4-10 .2 high Not Available [facility] (Lab) [address] [place], [address], 10/02/2023 22:18:17 10/02/19 24 10/02/2023 HEPAT IC/LI NANCY PANEL alkaline phosphatase 70 U/L 38-126 Not Available [facility] (Lab) [address] [place], [address], 10/02/2023 22:18:22 10/02/19 24 10/02/2023 HEPAT IC/LI NANCY PANEL alanine aminotransfe rase 16 U/L 0-35 Not Available [facility] (Lab) [address] [place], [address], 10/02/2023 22:18:22 10/02/19 24 10/02/2023 HEPAT IC/LI NANCY PANEL aspartate aminotransfe rase 43 U/L 15-37 high Not Available [facility] (Lab) [address] [place], [address], 10/02/2023 22:18:22 10/02/19 24 10/02/2023 HEPAT IC/LI NANCY PANEL bilirubin, total 0.50 mg/dL 0.20-1 .30 Not Available [facility] (Lab) [address] [place], [address], 10/02/2023 22:18:22 10/02/19 24 10/02/2023 HEPAT IC/LI NANCY PANEL bilirubin, conjugated (direct) 0.00 mg/dL 0.00-0 .30 Not Available [facility] (Lab) [address] [place], [address], 10/02/2023 22:18:22 10/02/19 24 10/02/2023 HEPAT IC/LI NANCY PANEL biliurubin,u ncong. (indirect) 0.30 mg/dL 0.00-1 .1 Not Available [facility] (Lab) [address] [place], [address], 10/02/2023 22:18:22 10/02/19 24 10/02/2023 HEPAT IC/LI NANCY PANEL total protein 6.9 g/dL 6.3-8. 2 Not Available [facility] (Lab) [address] [place], [address], 10/02/2023 22:18:22 10/02/19 24 10/02/2023 HEPAT IC/LI NANCY PANEL albumin 4.5 g/dL 3.0-4. 4 high Not Available [facility] (Lab) [address] [place], [address], 10/02/2023 22:18:22 10/02/19 24 10/02/2023 HEPAT IC/LI NANCY PANEL globulin 2.4 g/dL 2.6-4. 2 low Not Available [facility] (Lab) [address] [place], [address], 10/02/2023 22:18:22 10/02/19 24 10/02/2023 HEPAT IC/LI NANCY PANEL A/G ratio 1.9 ratio 1.0-2. 0 Not Available [facility] (Lab) [address] [place], [address], 10/02/2023 22:18:22 10/02/19 24 10/02/2023 LIPID PANEL cholesterol 219 mg/dL 140-19 9 high NIH DANIEL NSUS RECOM MENDA TION FOR KARTIK STERO L: ADULT CHILD LOW RISK: <200 <170 BORDE RLINE : <200- 239 ----- HIGH RISK: >240 >200 Not Available [facility] (Lab) [address] [place], [address], 10/02/2023 22:18:28 10/02/19 24 10/02/2023 LIPID PANEL triglyceride s 97 mg/dL 0-150 NIH ADNIEL NSUS REPOR T RECOM MENDA TION FOR TRIGL YCERI JOSELINE: ADULT CHILD LOW RISK: <150 ----- BODER LINE: 150-1 99 ----- HIGH RISK: >200 ----- Not Available [facility] (Lab) [address] [place], [address], 10/02/2023 22:18:28 10/02/19 24 10/02/2023 LIPID PANEL HDL cholesterol 100 mg/dL 40- Not Available [facility] (Lab) [address] [place], [address], 10/02/2023 22:18:28 10/02/19 24 10/02/2023 LIPID PANEL LDL cholesterol, calculated 100 mg/dL 0-130 NIH DANIEL NSUS REPOR T RECOM MENDA TIONS FOR LDL: ADULT CHILD LOW RISK <130 <110 (OPTI MAL LDL) <100 ----- BORDE RLINE : 130-1 59 ----- HIGH RISK: >160 >130 A TRIGL YCERI DE RESUL T >400 INVAL IDATE S THE CALCU LATIO N FOR LDL FRACT IONAT ION - THE LDL RESUL T WILL NOT BE REPOR MICAH. Not Available [facility] (Lab) [address] [place], [address], 10/02/2023 22:18:28 10/02/19 24 10/02/2023 MIKI TIN ferritin 48 NG/mL 11.1-2 64 Not Available [facility] (Lab) [address] [place], [address], 10/02/2023 22:22:56 10/02/19 24 10/02/2023 VITAM IN B12 (LALITO WILL ) vb12 270 pg/mL 239-93 1 Not Available [facility] (Lab) [address] [place], [address], 10/02/2023 22:27:20 10/02/19 24 10/02/2023 FOLAT E, SERUM /PLAS MA folate 6.08 NG/mL 2.76-2 0.0 Not Available [facility] (Lab) [address] [place], [address], 10/02/2023 22:27:35 10/02/19 24 10/04/2023 CALCI UM, IONIZ ED/LC calcium, ionized, serum 5.0 mg/dL 4.5-5. 6 Perfo rmed at: CB - [facility] [address] [facility], [place] [id number] [facility] Lab Direc tor: Shiva etienne PhD, Phone : [phone] Not Available [facility] (Lab) [address] [facility] [place], [address], 10/04/2023 14:12:17 12/21/19 23 12/19/2022 US, [facility] ardio gram No observ ation record ed. [email or web address] [facility] [address], [place], [address], 12/21/2022 07:58:26 11/22/19 24 11/22/2023 MAMMO , scree jesika, digit al, bilat eral No observ ation record ed. [email or web address] [address] [facility], [place], [address], 11/27/2023 11:34:42 12/11/19 24 12/11/2023 US, echo ardio gram No observ ation record ed. [email or web address] [facility] [address], [place], [address], 12/19/2023 12:49:36 12/11/19 24 12/11/2023 US, [facility] ardio gram No observ ation record ed. [address] [facility] [address], [place], [address], 12/20/2023 14:32:04 12/12/19 24 12/12/2023 MAMMO , diagn ostic , digit al, bilat eral No observ ation record ed. [email or web address] [address], [place], [address], 12/20/2023 14:44:26 12/12/19 24 12/12/2023 MAMMO , diagn ostic , digit al, bilat eral No observ ation record ed. [email or web address] [address], [place], [address], 12/19/2023 15:51:05 01/23/20 24 01/23/2024 imagi ng inter preta tion No observ ation record ed. [address] [facility] [address], [place], [address], 02/14/2024 15:23:36 03/21/20 24 03/20/2024 DEXA No observ ation record ed. [address] [facility] [address], [place], [address], 03/27/2024 17:25:29 03/21/20 24 03/20/2024 DEXA No observ ation record ed. [address] [facility] [address], [place], [address], 03/27/2024 17:25:23 Result Notes None recorded. Problems Name Problem SNOMED Code Status Onset Date Resolution Date Notes Provider Name and Address Organization Details Recorded Time Edema 665553825 Active 2022 Mable Knott MD [address], [place], [address] , [employer] 3 15:47:50 Mixed anxiety and depressive disorder 689555208 Active 2022 Mable Knott MD [address] [place], [address] , [employer] 3 15:48:00 Hyperparathyr oidism 64598578 Active 2022 Mable Knott MD [address], [place], [address] , [employer] 3 14:18:57 Iron deficiency anemia 59510435 Active 2022 MD [address], [place], [address] , [employer] 3 14:19:06 Deep venous thrombosis of lower extremity 079885445 Active 2022 MD [address], [place], [address] , [employer] [facility] 3 14:21:55 Dry eyes 934004602 Active 2022 Mable Knott MD [address], [address], [place], [address] , [facility] [employer] [facility] 3 14:11:11 Insomnia 440561917 Active 2022 Mable Knott MD [address], [place], [address] , [facility] [employer] [facility] 3 14:15:27 Hyperlipidemi a 61553339 Active 2022 Mable Knott MD [address], [address], [address] , [facility] [employer] [facility] 3 14:18:56 Cobalamin deficiency 606875191 Active 2022 Mable Knott MD [address], [address], [address] , [facility] [employer] [facility] 3 14:19:09 Edema of lower extremity 607096883 Active 2022 Mable Knott MD [address], [address], [address] , [facility] [employer] [facility] 3 14:20:02 Hyponatremia 48260645 Active 2022 Mable Knott MD [address], [address] , [facility] [employer] [facility] 3 17:34:46 Mammography abnormal 797366636 Active 2023 Mable Knott MD [address], [place], [address] , [facility] [employer] [facility] 4 10:26:52 Deep venous thrombosis 462509938 Active 2018 Not Available [facility] 3 04:49:18 Chronic obstructive pulmonary disease 63002041 Active Not Available [facility] 3 04:49:18 Abnormal weight gain 940326244 Active Not Available [facility] 3 04:49:18 Gastroesophag eal reflux disease 220705763 Active Not Available [facility] 3 04:49:18 Rupture of anterior cruciate ligament 142153604 Active Not Available [facility] 3 04:49:18 Fibrocystic disease of breast 80510367 Active Not Available [facility] 3 04:49:19 Ventricular septal defect 17065481 Active Not Available [facility] 3 04:49:19 Vitamin D deficiency 06062270 Active Not Available [facility] 3 04:49:19 Depressive disorder 54956993 Active Not Available [facility] 3 04:49:19 Sinusitis 62459771 Active Not Available [facility] 3 04:49:19 Osteoarthriti s 619238986 Active Not Available [facility] 3 04:49:19 Seeing spots in front of eyes 808178425 Active Not Available [facility] 3 04:49:19 Temporomandib ular joint disorder 94841105 Active Not Available [facility] 3 04:49:19 Anxiety 43589835 Active Not Available [facility] 3 04:49:19 Mitral valve regurgitation 62574640 Active Not Available [facility] 3 04:49:19 Coronary arteriosclero sis 29392620 Active Not Available [facility] 3 04:49:19 Right bundle branch block 51427919 Active Not Available [facility] 3 04:49:20 Allergic rhinitis 76331101 Active Not Available [facility] 3 04:49:20 Visual disturbance 85350768 Active Not Available [facility] 3 04:49:20 Chronic cough 97553429 Active Not Available [facility] 3 04:49:20 Problem Notes None recorded. Procedures Surgical History Date Name Laterality Status Provider Name and Address Organization Details Recorded Time 4 Medicare Wellness CPT Code, subsequent completed Sarai Street RN [place] [employer] [facility] 10/02/2023 14:01:32 3 Medicare Wellness CPT Code, subsequent completed Laurie Sanabria RN [place] [facility] [place] [facility] 09/26/2022 11:38:24 esophageal hiatus hernia repair completed Not Available [facility] 08/30/2022 04:41:54 Imaging Results Imaging Date Name Status LastModified by Organization Details LastModified Time 12/19/2022 US, echocardiogram completed [email or web address] [facility] [address], [place], [address], 12/21/2022 07:58:26 11/22/2023 MAMMO, screening, digital, bilateral completed [email or web address] [address], [address], 11/27/2023 11:34:42 12/11/2023 US, echocardiogram completed [email or web address] [facility] [address], [place], [address], 12/19/2023 12:49:36 12/11/2023 US, echocardiogram completed [email or web address] [facility] [address], [place], [address], 12/20/2023 14:32:04 12/12/2023 MAMMO, diagnostic, digital, bilateral completed [address], [address], 12/20/2023 14:44:26 12/12/2023 MAMMO, diagnostic, digital, bilateral completed [address] [facility], [place], [address], 12/19/2023 15:51:05 01/23/2024 imaging interpretation completed [address] [facility] [address], [place], [address], 02/14/2024 15:23:36 03/20/2024 DEXA completed [address], [address], 03/27/2024 17:25:29 03/20/2024 DEXA completed [email or web address] [facility] [address], [place], [address], 03/27/2024 17:25:23 Procedure Notes None recorded. Medical Equipment None Reported. Allergies Allergen ID Allergen Name Allergen Category Reaction Reaction Severity Criticality Documentation Date Start Date Code Code System Note Provider Name and Address Organization Details Recorded Time 7451 Vioxx medicatio n rash Not available Not available 08/30/2022 23738 9 RxNorm Not Available [facility] 3 05:00:47 7452 ibuprofen medicatio n Not available Not available Not available 08/30/2022 5640 RxNorm Not Available [facility] 3 05:00:47 7453 Excedrin medicatio n hives Not available Not available 08/30/2022 51248 0 RxNorm Not Available [facility] 3 05:00:48 7454 aspirin medicatio n anaphylax is Not available Not available 08/30/2022 1191 RxNorm Not Available [facility] 3 05:00:48 7455 Arthrotec medicatio n Not available Not available Not available 08/30/2022 68020 RxNorm SWELL ING Not Available [facility] 3 05:00:48 7456 Aleve medicatio n hives Not available Not available 08/30/2022 34451 1 RxNorm Not Available [facility] 3 05:00:48 Medications Name Sig Start Date Stop Date Status Note LastModified by Organization Details LastModified Time fluticasone 250 mcg-salmete rol 50 mcg/dose blistr powdr for inhalation 1 puff bid active Not Available Not Available No t Available ipratropium 0.5 mg-albutero l 3 mg (2.5 mg base)/3 mL nebulizatio n soln Inhale 3 mL every day by nebulizat ion route for 1 day. 04/20 completed Not Available Not Available Not Available azithromyci n 250 mg tablet Take 2 TABLET EVERY DAY by oral route for 1 day then one tablet daily for the next four days active Not Available Not Available No t Available alprazolam 1 mg tablet TAKE 1 TABLET BY MOUTH THREE TIMES DAILY NEEDED active Not Available Not Available No t Available hydrocodone 5 mg-acetamin ophen 325 mg tablet 07/15 completed Not Available Not Available Not Available prednisone 20 mg tablet Take 2 tablets every day by oral route for 5 days. active Not Available Not Available No t Available venlafaxine ER 150 mg capsule,ext ended release 24 hr TAKE 1 CAPSULE BY MOUTH DAILY active Not Available Not Available No t Available promethazin e 6.25 mg-codeine 10 mg/5 mL syrup active Not Available Not Available Not Available penicillin V potassium 500 mg tablet 07/15 completed Not Available Not Available Not Available Advair Diskus 100 mcg-50 mcg/dose powder for inhalation Inhale 1 puff twice a day by inhalatio n route for 30 days. 12/06 completed Not Available Not Available Not Available clopidogrel 75 mg tablet TAKE 1 TABLET BY MOUTH ONCE DAILY active Not Available Not Available No t Available hydrocodone 10 mg-acetamin ophen 325 mg tablet Take 1 tablet every 4 hours by oral route as needed. active Not Available Not Available No t Available omeprazole 40 mg capsule,del ayed release TAKE 1 CAPSULE BY MOUTH TWICE DAILY BEFORE MEAL(S) 08/17 completed 1 po qday MK 04/20 Not Available Not Available Not Available Kenalog 40 mg/mL suspension for injection active Not Available Not Available No t Available alprazolam 0.5 mg tablet TAKE 1 TABLET BY MOUTH THREE TIMES DAILY 12/23 completed Not Available Not Available Not Available amoxicillin 875 mg tablet Take 1 tablet every 12 hours by oral route for 7 days. active Not Available Not Available No t Available alprazolam 0.25 mg tablet TAKE 1 TABLET BY MOUTH THREE TIMES DAILY 07/04 completed Not Available Not Available Not Available pantoprazol e 40 mg tablet,ewa yed release TAKE ONE TABLET BY MOUTH TWICE DAILY DIRECTED 01/08 completed Not Available Not Available Not Available esomeprazol e magnesium 40 mg capsule,del ayed release Take 1 capsule twice a day by oral route. active Not Available Not Available No t Available losartan 25 mg tablet Take 1 tablet every day by oral route. 07/20 completed Not Available Not Available Not Available omeprazole 20 mg capsule,del ayed release Take 1 capsule every day by oral route for 90 days. 2012 active Not Available Not Available Not Avai lable montelukast 10 mg tablet 2020 active Not Available Not Available Not Avai lable furosemide 20 mg tablet TAKE 1 TABLET BY MOUTH ONCE DAILY 2023 active Not Available Not Available Not Avai lable triamterene 75 mg-hydrochl orothiazide 50 mg tablet Take 1 tablet every day by oral route for 90 days. 01/28 completed Not Available Not Available Not Available methylpredn isolone 4 mg tablets in a dose pack Use as directed 12/17 completed Not Available Not Available Not Available ondansetron 4 mg disintegrat ing tablet DISSOLVE 1 TABLET IN MOUTH EVERY 8 HOURS NEEDED FOR NAUSEA FOR VOMITING active Not Available Not Available No t Available fluoxetine 20 mg capsule Take 1 capsule(s ) every day by oral route for 30 days. 12/06 completed Not Available Not Available Not Available fluticasone propionate 50 mcg/actuati on nasal spray,suspe nsion USE TWO SPRAY IN EACH NOSTRIL AT BEDTIME active Not Available Not Available No t Available amoxicillin 875 mg-potassiu m clavulanate 125 mg tablet Take 1 tablet every 12 hours by oral route for 10 days. 12/17 completed Not Available Not Available Not Available Ventolin HFA 90 mcg/actuati on aerosol inhaler INHALE 2 PUFFS BY MOUTH EVERY 4 HOURS active Not Available Not Available No t Available oxycodone 5 mg tablet TAKE 1 TABLET BY MOUTH EVERY 4 HOURS NEEDED FOR PAIN MAKE SURE TO CRUSH THESE PILLS 08/17 completed Not Available Not Available Not Available neomycin-po lymyxin-hyd rocort 3.5 mg-10,000 unit/mL-1 % ear drops,susp INSTILL 4 DROPS INTO AFFECTED EAR(S) BY OTIC ROUTE 3 TIMES PER DAY x 7 days active Not Available Not Available No t Available Bactrim DS 800 mg-160 mg tablet Take 1 tablet every 12 hours by oral route for 3 days. active Not Available Not Available No t Available enoxaparin 80 mg/0.8 mL subcutaneou s syringe 04/20 completed Not Available Not Available Not Available enoxaparin 40 mg/0.4 mL subcutaneou s syringe INJECT 0.4 ML (40 MG TOTAL) UNDER THE SKIN EVERY 12 HOURS FOR 2 DAYS active Not Available Not Available No t Available escitalopra m 10 mg tablet Take 1 tablet every day by oral route. 07/04 completed Not Available Not Available Not Available escitalopra m 20 mg tablet TAKE 1 & 1 2 (ONE & ONE HALF) TABLETS BY MOUTH ONCE DAILY 12/15 completed Not Available Not Available Not Available Vitamin D3 25 mcg (1,000 unit) capsule Take 2 capsules every day by oral route as directed for 90 days. 12/06 completed Not Available Not Available Not Available Spiriva with HandiHaler 18 mcg and inhalation capsules INHALE ONE DOSE ONCE DAILY 12/18 completed Not Available Not Available Not Available nitrofurant oin monohydrate /macrocryst als 100 mg capsule Take 1 capsule every 12 hours by oral route for 7 days. active Not Available Not Available No t Available chlorhexidi ne gluconate 0.12 % mouthwash RINSE 1 5 SOLUTION IN MOUTH EVERY 6 HOURS NEEDED active Not Available Not Available No t Available Zostavax (PF) 19,400 unit/0.65 mL subcutaneou s suspension 09/24 completed Not Available Not Available Not Available Dex-Tuss 10 mg-300 mg/5 mL oral liquid active Not Available Not Available Not Available Adacel (Tdap Adolesn/Enoc lt)(PF)2 Lf-(2.5-5-3 -5)-5 Lf/0.5 mL IM syringe active Not Available Not Available N ot Available Prevnar 13 (PF) 0.5 mL intramuscul ar syringe PHARMACIS T ADMINISTE RED IMMUNIZAT ION ADMINISTE RED AT TIME OF DISPENSIN G active Not Available Not Available No t Available Eliquis 5 mg tablet TAKE 1 TABLET BY MOUTH TWICE DAILY active Not Available Not Available No t Available Virtussin AC 10 mg-100 mg/5 mL oral liquid TAKE 10 ML BY MOUTH EVERY 4 HOURS NEEDED FOR COUGH 10/18 completed Not Available Not Available Not Available Spiriva Respimat 2.5 mcg/actuati on solution for inhalation Inhale 2 puffs every day by inhalatio n route. 01/08 completed Not Available Not Available Not Available Stiolto Respimat 2.5 mcg-2.5 mcg/actuati on solution for inhalation INHALE 2 PUFFS BY MOUTH ONCE DAILY active Not Available Not Available No t Available Breo Ellipta 200 mcg-25 mcg/dose powder for inhalation INHALE 1 PUFF BY MOUTH TWICE DAILY 10/18 completed Not Available Not Available Not Available Narcan 4 mg/actuatio n nasal spray CALL 911. ADMINISTE R A SINGLE SPRAY INTRANASA LLY INTO ONE NOSTRIL UPON SIGNS OF OPIOID OVERDOSE. MAY REPEAT AFTER 3 MINUTES IF NO RESPONSE. 07/15 completed Not Available Not Available Not Available Bevespi Aerosphere 9 mcg-4.8 mcg HFA aerosol inhaler INHALE 2 PUFFS BY MOUTH TWICE DAILY 11/14 completed Not Available Not Available Not Available Fluarix Quad 9761-2557 (PF) 60 mcg (15 mcg x 4)/0.5 mL IM syringe active Not Available Not Available N ot Available Shingrix (PF) 50 mcg/0.5 mL intramuscul ar suspension, kit PHARMACIS T ADMINISTE RED IMMUNIZAT ION ADMINISTE RED AT TIME OF DISPENSIN G active Not Available Not Available No t Available Eliquis DVT-PE Treatment 30-Day Starter 5 mg (74 tablets) in dose pack TAKE 2 TABLETS BY MOUTH TWICE DAILY FOR 7 DAYS AND 1 TAB TWICE DAILY THEREAFTE R active Not Available Not Available No t Available Fluzone High-Dose (PF) 180 mcg/0.5 mL intramuscul ar syringe PHARMACIS T ADMINISTE RED IMMUNIZAT ION ADMINISTE RED AT TIME OF DISPENSIN G active Not Available Not Available No t Available Vitals Date Recorded Body height Body mass index (BMI) Body weight Body temperature Heart rate Oxygen saturation Oxygen saturation in Arterial blood by Pulse oximetry Systolic blood pressure Diastolic blood pressure Provider Name and Address Organization Details Last Updated DateTime 3 165.1 cm 27.1 kg/m2 47689.5 6 g 97.7 [degF] 81 /min 100 % 100 % 124 mm[Hg] 74 mm[Hg] Karol Lopez CMA [place] [facility] [place] [facility] [facility] 3 14:05:53 Date Recorded Body height Body mass index (BMI) Body weight Body temperature Heart rate Oxygen saturation Oxygen saturation in Arterial blood by Pulse oximetry Systolic blood pressure Diastolic blood pressure Provider Name and Address Organization Details Last Updated DateTime 3 165.1 cm 28 kg/m2 79358.5 2 g 97.8 [degF] 76 /min 98 % 98 % 120 mm[Hg] 82 mm[Hg] Joan Wills LPN [facility] 3 14:04:33 Date Recorded Body height Body mass index (BMI) Body weight Body temperature Heart rate Oxygen saturation Oxygen saturation in Arterial blood by Pulse oximetry Systolic blood pressure Diastolic blood pressure Provider Name and Address Organization Details Last Updated DateTime 4 165.1 cm 29 kg/m2 16627.0 7 g 97.2 [degF] 85 /min 94 % 94 % 144 mm[Hg] 90 mm[Hg] Sarai Street RN [facility] 4 14:04:50 Date Recorded Body height Provider Name an d Address Organization Details Last Updated DateTime 02/14/2024 165.1 cm Celeste Roberts RN [facility] 02/14/2024 14:53:51 Social History Question Answer Notes LastModified by Organization Details LastModified Time Tobacco Smoking Status Former Smoker quit 20+ years ago Mable Knott MD [address] [place] [address], [id number] 09/27/2022 14:11:26 Do You Have An Advance Directive? No Patient Declined Informatio n. Information not available 09/26/2022 Are You Blind Or Do You Have Difficulty Seeing? No Information not available 09/26/2022 What Is Your Level Of Caffeine Consumption? Moderate [id number] Information not available 08/30/2022 In The 14 Days Before Symptom Onset, Have You Had Close Contact With A Person Who Is Under Investigation For COVID-19 While That Person Was Ill? No [id number] Information not available 08/30/2022 Are You Deaf Or Do You Have Serious Difficulty Hearing? No Information not available 09/26/2022 Do You Use Insect Repellent Routinely? Yes Information not available 09/26/2022 Where Do You Live? SingleLevelHouse With Basement Information not available 09/26/2022 Presence Of Domestic Violence No Information not available 09/26/2022 Are You Able To Care For Yourself? Yes Information not available 09/26/2022 Are You Blind Or Do Yo Have Difficulty Seeing? No Information not available 09/26/2022 Are You Deaf Or Do You Have Serious Difficulty Hearing? No Information not available 09/26/2022 General Stress Level? Low Information not available 09/26/2022 Live Alone Of With Others? With Others Information not available 09/26/2022 What Was The Date Of Your Most Recent Tobacco Screening? 10/02/2023 Information not available 10/02/2023 What Is Your Relationship Status? Information not available 09/26/2022 Do You Have Smoke And Carbon Monoxide Detectors In Your Home? Yes Information not available 09/26/2022 Do You Use Sunscreen Routinely? Yes [id number] Information not available 08/30/2022 Has Tobacco Cessation Counseling Been Provided? No Information not available 09/26/2022 Do You Have Difficulty Walking Or Climbing Stairs? Yes Information not available 09/26/2022 Do You Have Any Dietary Restrictions? No Information not available 09/26/2022 Sex: Unknown Functional Status Question Answer Note LastModified by Organizat ion Details LastModified Time Do you or have you ever used any other forms of tobacco or nicotine? No Information not available 09/26/2022 What is your level of alcohol consumption? Moderate Patient stated she has a drink once or twice a week. Information not available 09/26/2022 Do you have transportation difficulties? No Information not available 09/26/2022 Are you able to walk? YESWOREST Information not available 09/26/2022 Do you have difficulty doing errands alone? No Information not available 09/26/2022 Are you able to care for yourself? Yes Information n ot available 09/26/2022 Do you have difficulty dressing or bathing? No Information not available 09/26/2022 What is your exercise level? Occasional Information not available 09/26/2022 Mental Status Question Answer Note LastModified by Organization D etails LastModified Time Do you have difficulty concentrating, remembering or making decisions? No Information no t available 09/26/2022 Family History Relationship Description Onset Age of this Age Resolved Age Notes LastModified by Organization Details LastModified Time Mother Malignant tumor of breast [email or web address] Not available 2022 14:10:06 Sister Malignant tumor of breast [email or web address] Not available 2022 14:10:06 Daughter Malignant neoplasm of colon and/or rectum [email or web address] Not available 2022 14:10:28 Medical History No medical history recorded. Gynecological HistoryNo gynecological history recorded. Obstetrics History GPAL:G 0 P 0 0 0 0 Immunizations Vaccine Type Date Status Note Provider Nam e and Address Organization Details Recorded Time Influenza, high-dose, quadrivalent, PF 3 completed Mable Knott MD [address] [place] [address], [phone], [facility] 03/29/2023 21:23:02 influenza, unspecified formulation 2 completed Not Available [facility] 08/30/2022 05:00:19 influenza, unspecified formulation 2 completed Not Available [facility] 08/30/2022 05:00:19 COVID-19, mRNA, LNP-S, PF, 30 mcg/0.3 mL dose 1 completed Not Available [facility] 08/30/2022 05:00:19 COVID-19, mRNA, LNP-S, PF, 100 mcg/0.5mL dose or 50 mcg/0.25mL dose 1 completed Not Available [facility] 08/30/2022 05:00:20 Pneumococcal conjugate PCV 13 9 completed Not Available [facility] 08/30/2022 05:00:20 Influenza, split virus, trivalent, PF 4 completed Not Available [facility] 08/30/2022 05:00:20 Tdap 8 completed Not Available [facility] 08/30/2022 05:00:20 Influenza, high-dose, quadrivalent, PF 1 completed Not Available [facility] 08/30/2022 05:00:20 Influenza, high-dose, quadrivalent, PF 0 completed Not Available [facility] 08/30/2022 05:00:20 Influenza, split virus, quadrivalent, preservative 5 completed Not Available [facility] 08/30/2022 05:00:21 pneumococcal polysaccharide PPV23 4 completed Not Available [facility] 08/30/2022 05:00:21 Past Encounters Encounter ID Performer Location Encounter Start Date Encounter Closed Date Diagnosis/Indication Diagnosis SNOMED-CT Code Diagnosis ICD10 Code Diagnosis Note [id number] Mable Knott MD [facility] [place] [address] [place] [address] 10/18/2020 00:00:00 10/19/2020 09:00:54 [id number] Mable Knott MD [facility] [place] [address] [place] [address] 11/15/2020 00:00:00 11/15/2020 14:53:07 [id number] Mable Knott MD [facility] [place] [address] [place] [address] 12/15/2020 00:00:00 12/29/2020 10:31:03 [id number] OSCAR Sesay [facility] Primary [facility] [place] [address] [place] [address] 12/17/2020 00:00:00 12/17/2020 17:12:45 [id number] Mable Knott MD [facility] Primary [facility] [place] [address] [place] [address] 03/14/2021 00:00:00 03/14/2021 15:24:23 [id number] Mable Knott MD [facility] Primary [facility] [place] [address] [place] [address] 04/20/2021 00:00:00 04/20/2021 12:22:25 [id number] Mable Knott MD [facility] Primary [facility] [place] [address] [place] [address] 08/17/2021 00:00:00 08/29/2021 09:14:42 [id number] Mable Knott MD [facility] Primary [facility] [place] [address] [place] [address] 11/14/2021 00:00:00 11/28/2021 21:43:08 [id number] Mable Knott MD [facility] Primary [facility] [place] [address] [place] [address] 03/27/2022 00:00:00 03/27/2022 12:13:25 [id number] Mable Knott MD [facility] Primary [facility] [place] [address] [place] [address] 03/28/2022 00:00:00 03/28/2022 17:49:53 [id number] Mable Knott MD [facility] Primary [facility] [place] [address] [facility] [address] [place] [address] 09/27/2022 13:58:55 09/27/2022 14:49:02 Adult health examination 885268206 Z00.00 has completed shingles vaccine serieshas received pneumovax 23 and prevar 13recommen ded covid bivalent boosterrec ommend yearly flu vaccinemam mogram due 3pla n dexa at same time as mammogramc olonoscopy - repeat 04/2025s/p hysterecto my, no pap needed Screening for disorder 086266187 Z13.9 Chronic ob structive pulmonary disease 64162784 J44.9 stablecont inue montelukas t 10 mg daily and ventolin prn Hyperparathyroidism 6699 9008 E21.3 stablechec k labs yearly Deep venou s thrombosis of lower extremity 781288901 I82.409 stablecont inue eliquis 5 mg bid Mixed anxi ety and depressive disorder 838724487 F41.8 stablecont inue alprazolam 1 mg po tid and venlafaxin e ER 150 mg daily [id number] Mable Knott MD [facility] Primary [facility] [place] [address] [facility] [address] [place] [address] 03/29/2023 13:56:19 03/29/2023 14:36:48 Administration of influenza vaccine 63116965 Z23 Hyperparathyroidism 6699 9008 E21.3 stablechec k labs yearly Iron defic iency anemia 92279341 D50.9 Vitamin D deficiency 347 53698 E55.9 Dry eyes 338242509 H04.1 23 has seen eye doctor and has f/u scheduledu sing otc systane completech doreen jana Insomnia 831904422 G47.0 0 ok to increased alprazolam to 1 tab po qhs prn x 7 days and call with update next weeksleep hygeine Hyperlipidemia 09462472 E78.5 Cobalamin deficiency 190 360981 E53.8 Edema of l ower extremity 039552743 R60.0 [id number] Mable Knott MD [facility] Primary Care [facility] [address] [facility] [address] [place] [address] 04/16/2023 12:40:25 08/29/2023 11:20:49 [id number] Mable Knott MD [facility] Primary Care [facility] [address] [facility] [address] [place] [address] 10/02/2023 13:58:58 10/02/2023 15:27:43 Adult health examination 965811024 Z00.00 shingrix 12/2018, 03/2019Tdap 2019has received pneumovax 23 and prevar 13 (2018)edil mmended covid bivalent boosterrec ommend yearly flu vaccinemam mogram is upcoming-a ppt is in Octoberplan dexa at same time as mammogramc olonoscopy - repeat 04/2025s/p hysterecto my, no pap needed Postmenopausal state 764 62345 Z78.0 Hyperparathyroidism 6699 9008 E21.3 stablechec k labs yearly Iron defic iency anemia 80896574 D50.9 stablerech doreen labs Vitamin D deficiency 347 52407 E55.9 Hyperlipidemia 95175961 E78.5 stable Cobalamin deficiency 190 875165 E53.8 stable Anxiety 47159105 F41.9 stable on alprazolam 1 mg po tid and venlafaxin e ER 150 mg dailyrefil l given Deep venou s thrombosis 947534957 I82.409 on eliquis 5 mg po bid lifelong Edema 301790664 R60.9 [id number] Peralta [facility] [place] [address] [facility] [address] [facility] [place] [address] 02/14/2024 14:50:44 02/14/2024 15:12:12 Health Concerns Section Related Observation LastModified by Organization Detai ls LastModified Time None Recorded Concern Status LastModified by Organization Details LastModified Time None Recorded Advance Directives Directive N: Patient declined informat ion. Payers Encounter Date Sequence Insurance Name Policy Number Policy Rees Covered Member ID Rees Member ID Guarantor Name 09/27/2022 1 [place] Hue Orellanaerman [id number] Heu L Dickerman 09/27/2022 2 [employer] [place] (MEDICARE SUPPLEMENT) Hue L Dickerman [id number] Hue L Dickerman 03/29/2023 1 [place] Hue L Dickerman [id number] Hue L Dickerman 03/29/2023 2 [employer] [place] (MEDICARE SUPPLE[place]) Hue L Dickerman [id number] Hue L Dickerman 04/16/2023 1 [place] Hue L Dickerman [id number] Hue L Dickerman 04/16/2023 2 [employer] [place] (MEDICARE SUPPLE[place]) Hue L Dickerman [id number] Hue L Dickerman 10/02/2023 1 [place] Hue L Dickerman [id number] Hue L Dickerman 10/02/2023 2 [employer] [place] (MEDICARE SUPPLE[place]) Hue L Dickerman [id number] Hue L Dickerman 02/14/2024 1 [place] Hue L Dickerman [id number] Hue L Dickerman 02/14/2024 2 [employer] [place] (MEDICARE SUPPLEMENT) Hue L Lester [id number] Hue Batista Notes Date Note Type Note Provider Name and Address Organization Details Recorded Time 09/27/2022 text/html here for medicar e wellness Mable Knott MD [address], [place], [address], [employer] 10/02/2022 11:26:38 03/29/2023 text/html here to f/u. She is overall feeling well, but eye doctor recently told her that her eyes are extremely dry. She had cut back on her alprazolam at bedtime in 07/03, but since she started eye drops she feels her sleep has been off-hard time falling asleep and staying asleep. Stressors have also been increased. Mable Knott MD [address], [place], [address], [employer] 03/29/2023 21:24:21 10/02/2023 text[facility]html [facility] Her anxiety and sleep have been in good control with her current medications. Mable Knott MD [address], [place], [address], [employer] 10/02/2023 19:24:04 OBGyn Episode No OBEpisode recorded.
--- OUTSIDE RECORDS SUMMARY | 2024-11-20 09:14 | XMS_ITS | CONTINUITY OF CARE DOCUMENT ---
Author Name atiya, atiya Address Unknown Organization [facility] Address [address] [place] [address] Phone [phone] Care Team Providers Care Instructional Support Specialist Name Role Phone Brannon FERREIRA, Angelo Unavailable [phone] DARYA FERREIRA, MABLE Ivey Unavailable Nba CHAVEZ, Jia Unavailable PROBLEMS Condition Status Date Provider Notes VENTRICULAR SEPTAL DEFECT, H X OF- SURGERY AGE 2 active ? Angelo South MD EDEMA- LEFT LEG-07/15 MARIAM DOP NEG completed - T eric South MD SHORTNESS OF BREATH MOD TO S EVERE OBST ON PFTS active ? Angelo South MD HTN SYSTOLIC--echo ef nl, mo d , 08/2024 active Suresh Garrett GERD active Angelo South MD Chest pain active Suresh Garrett Aortic stenosis, moderate active Suresh browne Aortic aneurysm- 4.[address] 07/2021 active 1 Suresh Garrett COPD active Angelo South MD DVT of L leg x 2 latest 05/21 active Angelo South MD Anemia active Tahir C Nela Hiatal hernia active Tahir C Nela Cardiology examination active Suresh Garrett ENCOUNTERS Date Type Provider Location Encounter Diag nosis - In-person encounter Office Visit Angelo South MD [facility] HTN SYSTOLIC--echo ef nl, mod , hest painAortic stenosis, moderate - In-person encounter Office Visit Angelo South MD [facility] - In-person encounter Office Visit Angelo South MD [facility] - In-person encounter Office Visit Angelo South MD [facility] - In-person encounter Office Visit Angelo South MD [facility] Cardiology examination - In-person encounter Office Visit Angelo South MD [facility] Aortic aneurysm- 4.[address] 07/2021 - In-person encounter Office Visit Angelo South MD [facility] HTN SYSTOLIC--echo ef nl, mod , ortic aneurysm- 4.[address] 07/2021 - In-person encounter Office Visit [facility] - In-person encounter Office Visit Angelo South MD [facility] AnemiaHiatal hernia - In-person encounter Office Visit Angelo South MD [facility] DVT of L leg x 2 latest 05/21 - In-person encounter Office Visit Angelo South MD [facility] - In-person encounter Office Visit Angelo South MD [facility] - In-person encounter Office Visit Angelo South MD [facility] EDEMA- LEFT LEG-07/15 MARIAM DOP NEG - In-person encounter Office Visit Mazin Wright MD [facility] - In-person encounter Office Visit Mazin Wright MD [facility] DVT of L leg x 2 latest 05/21 - In-person encounter Office Visit Angelo South MD [facility] Aortic stenosis, moderateAortic aneurysm- 4.[address] OPD - In-person encounter Office Visit Angelo South MD [facility] Aortic stenosis, moderate - In-person encounter Office Visit Angelo South MD [facility] - In-person encounter Office Visit Angelo South MD [facility] - In-person encounter Office Visit Angelo South MD [facility] SHORTNESS OF BREATH MOD TO SEVERE OBST ON PFTSChest pain - In-person encounter Office Visit Angelo South MD [facility] VENTRICULAR SEPTAL DEFECT, HX OF- SURGERY AGE 2EDEMA- LEFT LEG-07/15 MARIAM DOP NEGSHORTNESS OF BREATH MOD TO SEVERE OBST ON PFTSHTN SYSTOLIC--echo ef nl, mod , 08/2024GER VITAL SIGNS Date Observation Value Provider Body Mass Index (Ratio) 27.62 kg/m2 Demarcus South MD blood pressure, diastolic 99 mm[Hg] Monica hatch Mendiola blood pressure, systolic 131 mm[Hg] mEa ramirezgmóez Lopezs pulse rate 78 /min [place] paula oxygen saturation, oximetry 95 % Tatyana Mendiola weight E&M 166 [lb_av] Tatyanaholden mitchell height E&M 65 [in_i] [place] Lopez s Body Mass Index (Ratio) 27.79 kg/m2 Demarcus South MD blood pressure, diastolic 92 mm[Hg] Jayashree Schulte blood pressure, systolic 128 mm[Hg] Tonia Schulte oxygen saturation, oximetry 98 % Nolvia Schulte pulse rate 82 /min Nolvia Schulte respiratory rate E&M 12 /[facility]&M 167 [lb_av] [facility] height E&M 65 [in_i] [facility], cuff size regular An marleen [place] Body Mass Index (Ratio) 29.92 kg/m2 Demarcus South MD pulse rate 73 /min Supriya [place] blood pressure, cuff size regular Danny washington [place] blood pressure, diastolic 100 mm[Hg] Danny [facility], systolic 128 mm[Hg] [facility] [place] oxygen saturation, oximetry 97 % Supriya [place] respiratory rate E&M 12 /min Supriya [place] weight E&M 179.8 [lb_av] Supriya [place] height E&M 65 [in_i] Supriya [place] Body Mass Index (Ratio) 28.12 kg/m2 Demarcus South MD pulse rate 90 /min Mara Dario blood pressure, diastolic 81 mm[Hg] Jayashree champion Dario blood pressure, systolic 117 mm[Hg] Any a Dario oxygen saturation, oximetry 94 % Mara Dario blood pressure, cuff size large Jayashree champion Dario weight E&M 169 [lb_av] Mara Dario height E&M 65 [in_i] Mara Dario Body Mass Index (Ratio) 26.29 kg/m2 Demarcus Sotuh MD blood pressure, cuff size regular Ri ray Lovell blood pressure, diastolic 93 mm[Hg] Ri ray Lovell blood pressure, systolic 125 mm[Hg] Nohemy john Garrett oxygen saturation, oximetry 97 % Kimberly Lovell respiratory rate E&M 16 /min Jacqueline Lovell pulse rate 88 /min Kimberly ta weight E&M 158 [lb_av] Kimberly Arthur son height E&M 65 [in_i] Kimberly ta Body Mass Index (Ratio) 27.95 kg/m2 Demarcus South MD blood pressure, diastolic 100 mm[Hg] Ca therine Ruby blood pressure, systolic 125 mm[Hg] Cat herine Ruby oxygen saturation, oximetry 98 % Callie Avtar respiratory rate E&M 16 /min Catheri ne Ruby pulse rate 85 /min Callie Avtar weight E&M 168 [lb_av] Callie Avtar blood pressure, cuff size regular Ca therine Ruby height E&M 65 [in_i] Callie Ruby Body Mass Index (Ratio) 26.79 kg/m2 Demarcus South MD blood pressure, diastolic 70 mm[Hg] Li nkLogic blood pressure, systolic 118 mm[Hg] Veronica kLogic blood pressure, cuff size large Ok ray Bingham blood pressure, diastolic 70 mm[Hg] Ok ray [place] blood pressure, systolic 118 mm[Hg] [facility], [facility]xim[facility] 97 % Nicky Monterroso respiratory rate E&M 16 /min Marva Monterroso pulse rate 82 /min Nicky sultana weight E&M 161 [lb_av] Nicky sultana height E&M 65 [in_i] Nicky sultana Body Mass Index (Ratio) 31.28 kg/m2 Demarcus South MD blood pressure, cuff size regular Cy delbert Orozco blood pressure, diastolic 76 mm[Hg] Cy delbert Orozco blood pressure, systolic 138 mm[Hg] Marisa jason Orozco oxygen saturation, oximetry 96 % Anusha Orozco pulse rate 97 /min Anusha Tyler l respiratory rate E&M 16 /min Anusha Orozco weight E&M 188 [lb_av] Anusha Martybel l height E&M 65 [in_i] Anusha Martybel l Body Mass Index (Ratio) 29.62 kg/m2 Demarcus South MD blood pressure, cuff size large Ke rri Arcadiouenenfeldtal blood pressure, diastolic 66 mm[Hg] Ke rri Arcadiouenenfeldtal blood pressure, systolic 124 mm[Hg] Mallika ri Christa oxygen saturation, oximetry 98 % Aida Christa respiratory rate E&M 18 /min Aida G ruenenfelder pulse rate 70 /min Aida Arcadiouenenfe lder weight E&M 178 [lb_av] Aida Gruenenfe lder height E&M 65 [in_i] Aida Arcadiouenenfe lder Body Mass Index (Ratio) 29.28 kg/m2 Demarcus South MD blood pressure, diastolic 70 mm[Hg] Tono delbert Ernesto blood pressure, systolic 130 mm[Hg] Marisa gomez Orozco blood pressure, cuff size regular Cy delbert Ernesto pulse rate 81 /min Anusha Martymami ann marie respiratory rate E&M 16 /min Anusha Orozco oxygen saturation, oximetry 97 % Anusha Orozco weight E&M 176 [lb_av] Anusha Martybel l height E&M 65 [in_i] Anusha Campbel l Body Mass Index (Ratio) 27.89 kg/m2 Demarcus South MD blood pressure, diastolic 80 mm[Hg] Ruba Mauricio blood pressure, systolic 114 mm[Hg] Radha Mauricio oxygen saturation, oximetry 91 % Kelly Mauricio respiratory rate E&M 18 /min Hans Mauricio pulse rate 60 /min Kelly dunham weight E&M 167.6 [lb_av] Kelly moraleson height E&M 65 [in_i] Kelly dunham Body Mass Index (Ratio) 26.79 kg/m2 Demarcus South MD blood pressure, cuff size regular Cy delbert Orozco blood pressure, diastolic 90 mm[Hg] Cy ntritaa Orozco blood pressure, systolic 124 mm[Hg] Marisa jason Orozco oxygen saturation, oximetry 95 % Anusha Orozco respiratory rate E&M 16 /min Anusha Orozco pulse rate 76 /min Anusha Campbel l weight E&M 161 [lb_av] Anusha Campbel l height E&M 65 [in_i] Anusha Campbel l respiratory rate E&M 16 /min Tonsha Su blood pressure, diastolic 52 mm[Hg] To nsha Su blood pressure, systolic 116 mm[Hg] Ton sha Su pulse rate 75 /min Tonsha Su oxygen saturation, oximetry 90 % Tonsha Su Body Mass Index (Ratio) 26.96 kg/m2 Tons delacruz Su weight in kilograms E&M 73.48 kg Tons delacruz Su weight E&M 162 [lb_av] Tonsha Su height E&M 65 [in_i] Tonsha Su height in centimeters E&M 165.10 cm To nsha Su Body Mass Index (Ratio) 27.62 kg/m2 Tierra Wright MD blood pressure, resting No Brit oswaldo Block blood pressure, diastolic 62 mm[Hg] Br ittany Block blood pressure, systolic 100 mm[Hg] Ema ttany Block oxygen saturation, oximetry 99 % Karissa Block pulse rate 93 /min Karissa Block respiratory rate E&M 16 /min Brittan y Block weight E&M 166 [lb_av] Karissa Block height E&M 65 [in_i] Karissa Block Body Mass Index (Ratio) 31.12 kg/m2 Tierra Wright MD blood pressure, cuff size regular Cy delbert Orozco blood pressure, diastolic 74 mm[Hg] Cy delbert Orozco blood pressure, systolic 124 mm[Hg] Marisa jason Orozco oxygen saturation, oximetry 95 % Anusha Orozco respiratory rate E&M 16 /min Anushajason Orozco pulse rate 104 /min Anushajason Tyler l weight E&M 187 [lb_av] Anusha Matrybel l height E&M 65 [in_i] Anusha Campbel l Body Mass Index (Ratio) 29.95 kg/m2 Demarcus South MD blood pressure, cuff size regular Cr fly Bishop blood pressure, diastolic 90 mm[Hg] Cr fly Bishop blood pressure, systolic 130 mm[Hg] Andres Bishop oxygen saturation, oximetry 97 % Rochelle Bishop respiratory rate E&M 17 /min Rochelle Bishop pulse rate 90 /min Rochelle mitchell weight E&M 180 [lb_av] Rochelle mitchell height E&M 65 [in_i] Rochelle mitchell blood pressure, diastolic 96 mm[Hg] Ga reginald Rivera blood pressure, systolic 139 mm[Hg] Tracie freitas Rivera pulse rate 82 /min Mable Rivera oxygen saturation, oximetry 98 % Mable Rivera respiratory rate E&M 14 /min Mable Rivera Body Mass Index (Ratio) 26.96 kg/m2 [facility] weight E&M 162 [lb_av] Mable [facility] Body Mass Index (Ratio) 23.46 kg/m2 [facility] blood pressure, diastolic 86 mm[Hg] Ga reginald Rivera blood pressure, systolic 126 mm[Hg] Tracie fortino [facility] pulse rate 87 /min Mable [facility] oxygen saturation, oximetry 96 % Mable [facility] respiratory rate E&M 14 /min Mable [facility] weight E&M 141 [lb_av] Mable [facility] Body Mass Index (Ratio) 30.90 kg/m2 [facility] blood pressure, diastolic 84 mm[Hg] Ga reginald [facility] blood pressure, systolic 102 mm[Hg] Tracie fortino [facility] pulse rate 80 /min Mable [facility] oxygen saturation, oximetry 98 % Mable [facility] respiratory rate E&M 16 /min Mable [facility] weight E&M 185 [lb_av] Mable [facility] Body Mass Index (Ratio) 31.56 kg/m2 Friedman i Christa blood pressure, diastolic 92 mm[Hg] Ke lovelyi Christa blood pressure, systolic 130 mm[Hg] Mallika Goodwin pulse rate 74 /min Aida harris oxygen saturation, oximetry 96 % Aida Goodwin respiratory rate E&M 18 /min Aida berg weight E&M 189 [lb_av] Aida Lawrence lder blood pressure, diastolic 100 mm[Hg] Luisito Serra BABATUNDE blood pressure, systolic 150 mm[Hg] Josué Serra BABATUNDE pulse rate 99 /min Josué Serra BABATUNDE oxygen saturation, oximetry 98 % Josué Serra BABATUNDE respiratory rate E&M 16 /min Josué stevenspaula FINE Body Mass Index (Ratio) 31.40 kg/m2 Josué Serra BABATUNDE height E&M 65 [in_i] Josué Shipaula FINE weight E&M 188 [lb_av] Josué Serra RN ALLERGIES Allergy Name Onset Date Reaction Criticality Status [id number] Low Criticality active ARTHROTEC High Criticality active RESULTS Date Observation Value Provider Reference Range Interpretation Location 7 eGFR if 104 mL/min/{1 .73_m2} [facility] >59 7 eGFR if not 90 mL/min/{1 .73_m2} [facility] >59 7 creatinine, serum 0.69 mg/dL [facility] 0.57-1.00 1 very low density lipoproteins 47.6 mg/dL Tala Guy 1 HDL cholesterol, serum 82 mg/dL Tala Guy 1 LDL cholesterol, serum 94 mg/dL Tala Gyu HISTORY OF MEDICATION USE Medication Status Instructions Dates Provider Indications Com ments losartan 25 mg tablet active 1 tablet by mouth every night at bedtime Angelo South MD Ventolin HFA 90 mcg/actuation HFA aerosol inhaler active INHALE 2 PUFFS BY MOUTH EVERY 6 HOURS NEEDED SHORTNESS OF BREATH Jiajess Grullonmiblaine DURANP buspirone 10 mg tablet active 2 tablet by mouth twice a day Nolvia Schulte Vitamin B-12 1,000 mcg tablet active Supriya Howe Vitamin B-12 completed Take one tab PO daily - Jia Ventimiglqi [employer]TER Eliquis 5 mg tablet active TAKE 1 TABLET BY MOUTH TWICE DAILY Padmini Vasquez venlafaxine 150 mg tablet extended release 24hr active Take 1 tablet by mouth once a day Anusha Orozco Symbicort 160-4.5 mcg/actuation HFA aerosol inhaler completed 1 puff twice a day - Angelo South MD ADVAIR DISKUS 250-50 MCG/DOSE INHALATION AEROSOL POWDER BREATH ACTIVATED completed 1 puff twice daily - Angelo South MD ELIQUIS 5 MG ORAL TABLET completed one tablet twice daily - Aida Goodwin Eliquis 5 mg tablet completed Take 1 tablet by mouth twice a day - Anusha Orozco Peridex 0.12% mouthwash completed Take as directed - Sarah Luo NP HYDROCODONE-ACET AMINOPHEN 5-325 MG ORAL TABLET completed take 1 tab every 4 hours as needed for pain - Kelly Mauricio ELIQUIS 5 MG ORAL TABLET completed take 1 tab twice a day - Kelly Mauricio BREO ELLIPTA 200-25 MCG/INH INHALATION AEROSOL POWDER BREATH ACTIVATED completed one inhalation twice daily - Angelo South MD ESCITALOPRAM OXALATE 10 MG ORAL TABLET completed take 1 tab daily - Anusha Orozco COZAAR 25 MG ORAL TABLET completed po daily - Rochelle Bishop fluticasone propionate 50 mcg/actuation spray,suspension active into both nostrils once a day Mable Rivera ADVAIR DISKUS 100-50 MCG/DOSE INHALATION AEROSOL POWDER BREATH ACTIVATED completed 1 puff twice daily - Rochelle Bishop SPIRIVA HANDIHALER 18 MCG INHALATION CAPSULE completed 1 puff twice daily - Rochelle Bishop Ventolin HFA 90 mcg/actuation HFA aerosol inhaler completed 2 puff every four to six hours - Jia Grullonmiblaine DURANP Lasix 20 mg tablet active tablet by mouth once a day Angelo South MD VITAMIN D 3 completed 1999 international units daily - Aida Hernadezrenettadoretha FLUOXETINE HCL 20 MG ORAL CAPSULE completed daily - Mable Rivera PANTOPRAZOLE SODIUM 40 MG INTRAVENOUS SOLUTION RECONSTITUTED completed twice daily - Rochelle Bishop SOCIAL HISTORY Date Observation Value Provider personal history of marijuana use no Suresh Garrett drug use no Suresh Hermani alcohol use, average drinks per day [id number] Suresh Garrett alcohol use yes Suresh Garrett passive cigarette sm bruce exposure no Sureshjohn Garrett smoking, year quit 2004 Sureshjohn hopkins smoking history, tot al pack/year 32 Sureshjohn Garrett cigarette use yes Sureshjohn Garrett smoking status Former smoker Suresh Herman i personal history of marijuana use no Jia Ventimiglia [employer]TER drug use no Jia Ventimig dara [employer] alcohol use, average drinks per day [id number] Suresh Garrett alcohol use yes Suresh Garrett passive cigarette sm bruce exposure no Suresh Garrett smoking, year quit 2004 [facility] smoking history, tot al pack/year 32 Suresh Garrett cigarette use yes Suresh Garrett smoking status Former smoker Suresh Herman i drug use none Kit Rondon alcohol use, average drinks per day [id number] Kit Alejandroty alcohol use yes Kit Alejandroty passive cigarette sm bruce exposure no Kit Rondon smoking, year quit 2004 Kit munguia smoking history, tot al pack/year 32 Kit Alejandroty cigarette use yes Kit Rondon smoking status Former smoker Kit alonzo Exercise counseling yes Sarah Luo NP caffeine use, averag e drinks per day yes Mara Dario passive cigarette sm bruce exposure no Mara Dario smoking, year quit 2004 Mara Will iams smoking history, tot al pack/year 32 Mara Bishop cigarette use yes Maranessa Bishop smoking status Former smoker Mara mitchell social history reviewed E&M revi ewed - no changes required Angelo South MD social history E&M Marital Statu s: Unknown or other Smoking History: Adela pierce is a former smoker. Suresh Garrett caffeine use, averag e drinks per day yes Kimberly Lovell passive cigarette sm bruce exposure no Kimberly Mendozaerson smoking, year quit 2004 Kimberly Mendozaerson smoking history, tot al pack/year 32 Kimberly Lovell cigarette use yes Kimberly Mendozagómez wall smoking status Former smoker Kimberly ch social history reviewed E&M revi ewed - no changes required Suresh Garrett social history E&M Marital Statu s: Unknown or other Smoking History: Adela pierce is a former smoker. Suresh Garrett caffeine use, averag e drinks per day yes Callie Ruby passive cigarette sm bruce exposure no Callie Avtar smoking, year quit 2004 Callie Ruby smoking history, tot al pack/year 32 Callie Ruby cigarette use yes Callie Ruby smoking status Former smoker Callie Ot is social history reviewed E&M revi ewed - no changes required Angelo South MD caffeine use, averag e drinks per day yes Nicky Monterroso passive cigarette sm bruce exposure no Nicky Monterroso smoking, year quit 2004 Nicky Monterroso smoking history, tot al pack/year 32 Nicky Monterroso cigarette use yes Nicky Garnett nd smoking status Former smoker Nicky win social history reviewed E&M revi ewed - no changes required Suresh Garrett social history E&M Marital Statu s: Unknown or other Smoking History: Adela pierce is a former smoker. Angelo South MD caffeine use, averag e drinks per day yes Anusha Orozco passive cigarette sm bruce exposure no Anusha Ernesto smoking, year quit 2004 Anusha eller smoking history, tot al pack/year 32 Anusha Orozco cigarette use yes Anusha hebert smoking status Former smoker Anusha Ferguson mike social history reviewed E&M revi ewed - no changes required Suresh Garrett drug use none Tahir Esther Nela alcohol use, average drinks per day [id number] Tahir Esther Nela alcohol use yes Tahir Esther Nela social history E&M Marital Statu s: Unknown or other Smoking History: Adela pierce is a former smoker. Tahir Rondon social history reviewed E&M revi ewed - no changes required Tahir Esther Nela caffeine use, averag e drinks per day yes Aida Goodwin passive cigarette sm bruce exposure no Aida Goodwin smoking, year quit 2004 Aida reyez smoking history, tot al pack/year 32 Aida Goodwin cigarette use yes Aida medina smoking status Former smoker Aida coyne social history E&M Marital Statu s: Unknown or other Smoking History: Adela pierce is a former smoker. Angelo South MD social history reviewed E&M revi ewed - no changes required Angelo South MD caffeine use, averag e drinks per day yes Anusha Orozco passive cigarette sm bruce exposure no Anusha Orozco smoking, year quit 2004 Anusha eller smoking history, tot al pack/year 32 Anusha Ernesto cigarette use yes Anusha Joe ll smoking status Former smoker Anusha Marty mckeon social history E&M Marital Statu s: Unknown or other Smoking History: Adela pierce is a former smoker. Bernardo Arroyo social history reviewed E&M revi ewed - no changes required Bernardo Arroyo smoking status Former smoker Bernardo Chad chang number of grandchildren Angelo South MD N ramonherb Dina caffeine use, averag e drinks per day yes Kelly Mauricio passive cigarette sm bruce exposure no Kelly Mauricio smoking, year quit 2004 Kelly Mauricio smoking history, tot al pack/year 32 Kelly Mauricio cigarette use yes Kelly Melendez on social history E&M Marital Statu s: Unknown or other Smoking History: Adela pierce is a former smoker. nAgelo South MD social history reviewed E&M revi ewed - no changes required Angelo South MD caffeine use, averag e drinks per day yes Anusha Orozco passive cigarette sm bruce exposure no Anusha Orozco smoking, year quit 2004 Anusha eller smoking history, tot al pack/year 32 Anusha Ernesto cigarette use yes Anusha Joe ll smoking status Former smoker Anusha Marty mckeon social history E&M Marital Statu s: Unknown or other Smoking History: Adela pierce is a former smoker. Angelo South MD social history reviewed E&M revi ewed - no changes required Angelo South MD caffeine use, averag e drinks per day yes Tonsha Su passive cigarette sm bruce exposure no Tonsha Su smoking, year quit 2005 Tonsha Mo ss smoking history, tot al pack/year 32 Tonsha Su cigarette use yes Tonsha Su smoking status Former smoker Tonsha Su social history E&M Marital Statu s: Unknown or other Smoking History: Adela pierce is a former smoker. Mazin Wright MD social history reviewed E&M revi ewed - no changes required Mazin Wright MD caffeine use, averag e drinks per day yes Karissa Block passive cigarette sm bruce exposure no Karissa Block smoking, year quit 2004 Karissa Block smoking history, tot al pack/year 32 Karissa Block cigarette use yes Karissa Block smoking status Former smoker Karissa Darren pearce number of grandchildren Mazin Wright MD U luis enrique Wright MD social history E&M Marital Statu s: Unknown or other Smoking History: Adela pierce is a former smoker. Mazin Wright MD social history reviewed E&M revi ewed - no changes required Mazin Wright MD caffeine use, averag e drinks per day yes Anusha Orozco passive cigarette sm bruce exposure no Anusha Orozco smoking, year quit 2004 Anusha eller smoking history, tot al pack/year 32 Anusha Orozco cigarette use yes Anusha hebert smoking status Former smoker Anusha mckeon social history reviewed E&M revi ewed - no changes required Angelo South MD social history E&M Marital Statu s: Unknown or other Smoking History: Adela pierce is a former smoker. Angelo South MD cigarette use yes Rochelle Burns ms smoking status Former smoker Rochelle stevens social history reviewed E&M revi ewed - no changes required Angelo South MD alcohol use, average drinks per day [id number] Mable Rivera alcohol use yes Mable Rivera caffeine use, averag e drinks per day yes Mable Rivera drug use none Mable Rivera passive cigarette sm bruce exposure no Mable Rivera smoking status Former smoker Mable Moore nn social history reviewed E&M revi ewed - no changes required Angelo South MD alcohol use, average drinks per day [id number] Mable Rivera caffeine use, averag e drinks per day yes Mable Rivera drug use none Mable Rivera passive cigarette sm bruce exposure no Mable Rivera smoking status Former smoker Mable Moore nn social history E&M Marital Statu s: Unknown or other Angelo South MD drug use none Angelo South MD social history reviewed E&M reviewed Angelo South MD social history reviewed E&M reviewed Angelo South MD drug use no Josué Serra RN passive cigarette sm bruce exposure no Josué Serra RN smoking history, tot al pack/year 32 Josué Serra RN smoking, year quit 2005 Josué mitchell RN caffeine use, averag e drinks per day yes Josué Serra RN alcohol use, average drinks per day [id number] Josué Serra RN smoking status former smoker Josué Howard N social history reviewed E&M reviewed Josué Serra RN MENTAL STATUS Date Observation Value Provider assessment of judgme nt and insight E&M Alert and oriented to time, place and person. Mood and affect are normal. Angelo South MD assessment of judgme nt and insight E&M Alert and oriented to time, place and person. Mood and affect are normal. Angelo South MD assessment of judgme nt and insight E&M Alert and oriented to time, place and person. Mood and affect are normal. Josué Serra RN FAMILY HISTORY Family Member Condition Mother Family History Unkno wn Father Negative FH of Coron amarilis Artery Disease INSURANCE PROVIDERS Payer name Policy type / Coverage type [place] red [place] party ID AGC Commercial insura [employer] [id number] [place] Medicare [id number] ADVANCE DIRECTIVES Name Date DISCUSSED - NO DECISION MADE TREATMENT PLAN Date Name Performer [id number],C,p t had echo today, results were reviewed Sarah Luo NP [id number],C,p t had echo today. results reviewed peak 3.2 ECHO 2020 EF 65%m mild , trace MR, trace TR Sarah Luo NP [id number],C,stable. No Luo NP [id number],C,c ontinues on eliquis 5mg BID. wears compression stocking to LLE Sarah Luo NP [id number],C, B P today: 117/81 P rior BP: 125/93 (06/20/2022) Labs Reviewed: C reat: 0.69 (07/08/2021) H DL: 82 (06/21/2012) LDL: 94 (06/21/2012) Her updated medication list for this problem includes: Lasix 20 Mg Tablet (Furosemide) ..... Tablet by mouth once a day Sarah Luo NP [id number],SSuresh i [id number],SSuresh i [id number],SSuresh i [id number],S, Suresh Ahmedza i [id number],S, Suresh Ahmedza i [id number],S, Suresh Ahmedza i [id number],S, Suresh Ahmedza i [id number],S, Suresh Ahmedza i [id number],S, Suresh Ahmedza i [id number],S, Suresh Ahmedza i [id number],S, Suresh Ahmedza i [id number],S, Suresh Ahmedza i [id number],S, Suresh Ahmedza i [id number],S, Suresh Ahmedza i [id number],B, Suresh Ahmedza i [id number],S, Suresh Ahmedza i [id number],S, Suresh Ahmedza i [id number],S, Suresh Ahmedza i [id number],S, Suresh Ahmedza i [id number],S, Suresh Ahmedza i Cardiology Angelo South MD Cardiology Angelo South MD Cardiology Angelo South MD Cardiology: H er updated medication list for this problem includes: Lasix 20 Mg Tablet (Furosemide) ..... Tablet by mouth once a day BP today: 131/99 P rior BP: 128/92 (07/22/2024) Labs Reviewed: C reat: 0.69 (07/08/2021) H DL: 82 (06/21/2012) LDL: 94 (06/21/2012) Angelo South MD Cardiology:This visi t has been a part of the consistent, comprehensive, and ongoing management of the chronic medical condition(s) listed above for the patient. Angelo South MD Cardiology:mod-sever e on PFTs in 2013 W ill refer to pulmonary [facility] Cardiology:remains on Eliquis fo r [facility] Cardiology:BP 128/92 c ontinue present meds and monitor H er updated medication list for this problem includes: Lasix 20 Mg Tablet (Furosemide) ..... Tablet by mouth once a day [facility] Cardiology:Ascending aorta dilat ed at 4.3 cm [facility] Cardiology:Last echo 12/11/23 showed EF of 60% with mod and mild AR S he has had some new and increasing SOB over the last months W ill do f/u echo for further evaluation of This visit has been a part of the consistent, comprehensive, and ongoing management of the chronic medical condition(s) listed above for the patient. [facility] Cardiology [facility] Cardiology:4.2 on echo December 11, 2023 [facility] Cardiology [facility] Cardiology: H er updated medication list for this problem includes: Lasix 20 Mg Tablet (Furosemide) ..... Tablet by mouth once a day [facility] Cardiology [facility] Cardiology:repeat ec ho in 1 yr c ontinue to monitor for fatigue, swelling and sob [facility] Cardiology:pt had echo today, re sults were reviewed Sarah Luo NP Cardiology:pt had ec ho today. results reviewed peak 3.2 ECHO 2020 EF 65%m mild , trace MR, trace TR Sarah Luo NP Cardiology:stable. Sarah castillo NP Cardiology:continues on eliquis 5mg BID. wears compression stocking to LLE Sarah Michelledoe DISABILITY MANAGER Cardiology: B P today: 117/81 P rior BP: 125/93 (06/20/2022) Labs Reviewed: C reat: 0.69 (07/08/2021) H DL: 82 (06/21/2012) LDL: 94 (06/21/2012) Her updated medication list for this problem includes: Lasix 20 Mg Tablet (Furosemide) ..... Tablet by mouth once a day Sarah Michelledoe DISABILITY MANAGER Cardiology Suresh Ahmedzai Cardiology Suresh Ahmedzai Cardiology Suresh Ahmedzai Cardiology Suresh Ahmedzai Cardiology Suresh Ahmedzai Cardiology Suresh Ahmedzai Cardiology Suresh Ahmedzai Cardiology Suresh Ahmedzai Cardiology Suresh Ahmedzai Cardiology Suresh Ahmedzai Cardiology Suresh Ahmedzai Cardiology Suresh Ahmedzai Cardiology Suresh Ahmedzai Cardiology Suresh Ahmedzai Cardiology Suresh Ahmedzai Cardiology Suresh Ahmedzai Cardiology Suresh Ahmedzai Cardiology Suresh Ahmedzai Cardiology Suresh Ahmedzai Cardiology Suresh Ahmedzai Cardiology Follow up : H er updated medication list for this problem includes: Omeprazole 40 Mg Oral Capsule Delayed Release (Omeprazole) ..... Take one capsule by mouth twice daily Tahir [facility] [place] [facility] Follow up Tahir C Beat ty Cardiology Follow up Tahir C Beat [facility] Cardiology Follow up Tahir C Beat ty Cardiology Follow up Tahir C Beat ty Cardiology Follow up Tahir C Beat ty Cardiology Follow up Tahir Alejandro ty Cardiology Follow up : B P today: 124/66 P rior BP: 130/70 (06/15/2020) Labs Reviewed: H DL: 82 (06/21/2012) LDL: 94 (06/21/2012) Tahir Rondon Cardiology follow up Fito Nacht Cardiology follow up Fito Nacht Cardiology follow up Fito Nacht Cardiology follow up Fito Nacht Cardiology follow up Fito Nacht Cardiology Bernardo Lambros Cardiology Bernardo Lambros Cardiology Bernardo Lambros Cardiology Bernardo Lambros Cardiology: B P today: 114/80 P rior BP: 124/90 (09/17/2019) Labs Reviewed: H DL: 82 (06/21/2012) LDL: 94 (06/21/2012) Her updated medication list for this problem includes: Lasix 20 Mg Oral Tablet (Furosemide) ..... Po daily Bernardo Lambros Cardiology Bernardo Lambros Cardiology Bernardo Lambros Cardiology follow up Angelo egan MD Cardiology follow up Angelo egan MD Cardiology follow up Angelo egan MD Cardiology follow up Angelo egan MD Cardiology follow up Angelo egan MD Cardiology follow up Angelo egan MD Cardiology Angelo South MD Cardiology Angelo South MD Cardiology Angelo South MD Cardiology Angelo South MD Cardiology Angelo South MD Cardiology Angelo South MD Cardiology:s/p venog naya and thrombectomy. Her L LE pain and swelling is improved. Compliant with her compression stockings. Continue Eliquis. Mazin Wright MD Cardiology Mazin Wright MD Cardiology: B P today: 100/62 P rior BP: 124/74 (05/15/2019) Labs Reviewed: H DL: 82 (06/21/2012) LDL: 94 (06/21/2012) Mazin Wright MD Cardiology Mazin Wright MD Cardiology follow up :Pt has swelling and pain in the L thigh. Venous ultrasound from 05/06/19 at [facility] showed a DVT in the L common iliac vein. Will admit and give overnight TPA and will do thrombectomy. The next day plus/minus, iliac vein stenting if IVUS shows vein compression. Mazin Wright MD Cardiology follow up Mazin kinney MD Cardiology follow up : B P today: 124/74 P rior BP: 130/90 (01/29/2019) Labs Reviewed: H DL: 82 (06/21/2012) LDL: 94 (06/21/2012) Mazin Wright MD Cardiology follow up :As above U luis enrique Wright MD Cardiology Angelo South MD Cardiology Angelo South MD Cardiology Angelo South MD Cardiology Angelo South MD Cardiology Angelo South MD Cardiology Angelo South MD Cardiology Angelo South MD Cardiology Angelo South MD Cardiology Angelo South MD follow up: H er updated medication list for this problem includes: Lasix 20 Mg Tabs (Furosemide) ..... Po daily BP today: 126/86 P rior BP: 102/84 (10/28/2013) Labs Reviewed: H DL: 82 (06/21/2012) LDL: 94 (06/21/2012) Angelo South MD Follow Up: H er updated medication list for this problem includes: Lasix 20 Mg Tabs (Furosemide) ..... Po daily BP today: 102/84 Prior BP: 130/92 (08/26/2013) N uclear Stress Findings: 1. Normal myocardial perfusion imaging after vasodilator stress with Regadenoson. 2 . Normal left ventricular systolic function with a calculated ejection fraction of 66%. 3 . No obvious significant scintigraphic evidence of myocardial ischemia or scar. - (07/30/2013) Angelo South MD Follow Up: H er updated medication list for this problem includes: Pantoprazole Sodium 40 Mg Solr (Pantoprazole sodium) ..... Twice daily BP today: 102/84 Prior BP: 130/92 (08/26/2013) D iscussed lifestyle modifications, diet, antacids/medications, and preventive measures. Handout provided. Angelo South MD Follow up: H er updated medication list for this problem includes: Lasix 20 Mg Tabs (Furosemide) ..... Po daily BP today: 130/92 Prior BP: 150/100 (07/15/2013) N uclear Stress Findings: 1. Normal myocardial perfusion imaging after vasodilator stress with Regadenoson. 2 . Normal left ventricular systolic function with a calculated ejection fraction of 66%. 3 . No obvious significant scintigraphic evidence of myocardial ischemia or scar. - (07/30/2013) Angelo South MD Follow up: B P today: 130/92 Prior BP: 150/100 (07/15/2013) N uclear Stress Findings: 1. Normal myocardial perfusion imaging after vasodilator stress with Regadenoson. 2 . Normal left ventricular systolic function with a calculated ejection fraction of 66%. 3 . No obvious significant scintigraphic evidence of myocardial ischemia or scar. - (07/30/2013) L DL: 94 (06/21/2012) HDL: 82 (06/21/2012) Angelo South MD Follow up: H er updated medication list for this problem includes: Lasix 20 Mg Tabs (Furosemide) ..... Po daily BP today: 130/92 P rior BP: 150/100 (07/15/2013) Labs Reviewed: H DL: 82 (06/21/2012) LDL: 94 (06/21/2012) Angelo South MD sob- swelling left l eg : H er updated medication list for this problem includes: Pantoprazole Sodium 40 Mg Solr (Pantoprazole sodium) ..... Twice daily Angelo South MD sob- swelling left l eg : O rders: E KG ([id number]) Angelo South MD sob- swelling left leg Angelo lobato MD sob- swelling left l eg : H er updated medication list for this problem includes: Alprazolam 0.25 Mg Tabs (Alprazolam) ..... One tab. three times daily prn Angelo South MD Date Name LIPID PANEL IRON AND TOTAL IRON BINDING CAPACITY FERRITIN CBC (INCLUDES DIFF/P LT) PROBNP, N TERMINAL BASIC METABOLIC PANE L W/EGFR Complete Echo Complete Echo Complete Echo Creatinine, Serum CT Chest with contra st CT Chest with contra st Creatinine, Serum Complete Echo Venous Doppler Unila teral LLE Venogram w/ IVUS - C NE Complete Echo HISTORY OF PROCEDURES Procedure Date Procedure Name Provider Procedure Notes S tatus Complex e/m visit add on Angelo South MD completed Complex e/m visit add on Angelo South MD completed EKG Angelo South MD completed EKG Angelo South MD completed EKG Angelo South MD completed EKG Angelo South MD completed EKG Angelo South MD completed SNOMED-CT: [id number] Physical Exam, Performed: Pulse Exam of Foot Angelo South MD completed EKG Angelo South MD completed SNOMED-CT: [id number] Current Medications Documented Angelo South MD completed EKG Angelo South MD completed DLCO - 68105 Nik Johnson completed FRC - 67606 Nik Johnson completed FVC - 76667 Nik Johnson completed EKMargy South MD completed
--- OUTSIDE RECORDS SUMMARY | 2024-11-20 09:14 | XMS_ITS | Referral Summary ---
Author Organization [facility] Address [address] [place] [address] Care Team Providers Care Barking Machine Feeder Name Role Phone Mable Knott MD Primary Care Provider + Tahir Coleman DO Unavailable Lazaro Robledo MD Unavailable [phone] Angelo South MD Unavailable Allergies Active Allergy Reactions Criticality Noted Date Comments Aspirin Hives,Anaphylaxis High 04/02/2018 Jcqubdr-Mbujmnsckmigc-Tpamxkxn Hives Medium 05/16 Diclofenac-Misoprostol Other (See comments) Low Ibuprofen Anaphylaxis High 02/04/2019 Naproxen Anaphylaxis,Hives High 12/18/2018 Other Unknown High 01/29/2019 Rofecoxib Rash Medium 01/29/2019 Medications fluticasone propionate (FLONASE) 50 mcg/actuation nasal spray Administer 2 sprays into each nostril daily as needed Active ALPRAZolam (XANAX) 0.25 mg tablet Take 1 mg by mouth as directed Take 1.5 tablets in the morning and 1 tablet in at bedtime 03/16/20 18 Active ALBUTEROL SULFATE INHAL Inhale 2 puffs as needed Active apixaban (ELIQUIS) 5 mg tablet Take 5 mg by mouth 2 (two) times a day Active glycopyrrolate-for moteroL (Bevespi Aerosphere) 9-4.8 mcg inhaler Inhale 2 puffs 2 (two) times a day after breakfast and dinner Active Lactobac no.41/Bifidobact no.7 (PROBIOTIC-10 ORAL) Take 2 tablets by mouth group therapy counselor before breakfast Active Ventolin HFA 90 mcg/actuation inhaler INHALE 2 PUFFS BY MOUTH 4 TIMES DAILY NEEDED 03/14/20 Active budesonide-formote roL (SYMBICORT) 160-4.5 mcg/actuation inhaler Symbicort 160-4.5 mcg/actuation HFA aerosol inhaler 10/19/19 Active cholecalciferol (Vitamin D3) 2000 unit capsule Take 1 capsule (2,000 Units total) by mouth group therapy counselor before breakfast RESTART in 1 week when able to take pills whole. 04/01/20 Active cyanocobalamin (Vitamin B-12) 500 mcg tablet Take 2 tablets (1,000 mcg total) by mouth group therapy counselor before breakfast RESTART in 1 week when able to take pills whole 04/01/20 Active Additional Information Patient not taking.Reported on 04/14/2022 furosemide (LASIX) 20 mg tablet Take 1 tablet (20 mg total) by mouth group therapy counselor before breakfast CRUSH pills and take in applesauce for 1 week, then may take pills whole 03/25/20 Active omeprazole (PriLOSEC) 40 mg capsule Take 1 capsule (40 mg total) by mouth daily Open capsule take in applesauce for 1 week, then may take pills whole 03/25/20 Active Additional Information Patient not taking.Reported on 04/14/2022 venlafaxine (EFFEXOR) 75 mg tablet Take 1 tablet (75 mg total) by mouth 2 (two) times a day for 7 days 14 tablet 03/26/20 Active oxyCODONE (ROXICODONE) 5 mg immediate release tabletIndications: Pain Take 1 tablet (5 mg total) by mouth every 4 (four) hours as needed for pain 10 tablet 03/26/20 21 Active Additional Information Patient not taking.Reported on 04/14/2022 polyethylene glycol (MIRALAX) 17 gram packetIndications: constipation Take 1 packet (17 g total) by mouth daily 30 packet 03/26/20 Active Additional Information Patient not taking.Reported on 04/14/2022 ondansetron ODT (ZOFRAN-ODT) 4 mg disintegrating tablet Take 1 tablet (4 mg total) by mouth every 8 (eight) hours as needed for nausea or vomiting 20 tablet 03/26/20 Active Additional Information Patient not taking.Reported on 04/14/2022 Active Problems Problem Noted Date Diagnosed Date Abnormal weight gain 04/08/2021 Allergic rhinitis 04/08/2021 Anxiety 04/08/2021 Chronic cough 04/08/2021 Chronic obstructive pulmonary disease 04/08/2021 Coronary arteriosclerosis 04/08/2021 Depressive disorder 04/08/2021 Edema 04/08/2021 Fibrocystic disease of breast 04/08/2021 Gastroesophageal reflux disease 04/08/2021 Mitral valve regurgitation 04/08/2021 Personal history of other di seases of the circulatory system 04/08/2021 Right bundle branch block 04/08/2021 Rupture of anterior cruciate ligament 04/08/2021 Shortness of breath 04/08/2021 Sinusitis 04/08/2021 Osteoarthritis 04/08/2021 Ventricular septal defect 04/08/2021 Vitamin D deficiency 04/08/2021 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 Overview (02/03/2021): Added automatically from request for surgery [id number] Hypercalcemia 08/28/2020 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 08/28/2020 Iron deficiency anemia 08/12/2020 Deep vein thrombosis (DVT) of left lower extremi ty 05/15/2019 Overview (05/19/2019): Added automatically from request for surgery [id number] Aortic aneurysm 01/29/2019 Nonrheumatic aortic (valve) stenosis 11/22/2015 Chest pain, unspecified 08/26/2013 Essential (primary) hypertension 07/15/2013 Immunizations Immunization Administration Dates Next Due Moderna SARS-CoV-2 Monovalent Vaccination (12+ Y RS) 09/21/2020,08/24/2020 Social History Tobacco Use Types Packs/Day Years Used Date Smoking Tobacco: Former Cigarettes Smokeless Tobacco: Never Tobacco Cessation:Counseling Given: Not Answered Alcohol Use Standard Drinks/Week Comments Yes 0 (1 standard drink = 0.6 oz pur e alcohol) occassionally AUDIT-C Answer Date Recorded Q1: How often do you have a drink containing alc ohol? 2-4 times a month 03/23/2021 Q2: How many drinks containi ng alcohol do you have on a typical day when you are drinking? 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 Gender Identity Not on file Sexual Orientation Not on file Last Filed Vital Signs Vital Sign Reading Time Taken Comments Blood Pressure 124/85 04/14/2022 12:33 PM CDT Pulse 95 04/14/2022 12:33 PM CDT Temperature 36.2 C (97.2 F) 04/14/2022 12:33 PM CDT Respiratory Rate 16 04/14/2022 12:33 PM CDT Oxygen Saturation 98% 04/14/2022 12:33 PM CDT Inhaled Oxygen Concentration - - Weight 70.9 kg (156 lb 3.2 oz) 04/14/2022 12:33 PM CDT Height 165.1 cm (5' 5 ) 04/14/2022 12:33 PM CDT Body Mass Index 25.99 04/14/2022 12:33 PM CDT Plan of Treatment Not on file Medical Devices Implanted Type Area Flavorer Device Identifier Shelf Expiration Date Model / Serial / Lot [employer] [id number] [employer] Bio-A 10x7cm Reinforcement Tissue Mesh Surgical Synthetic - [id number] - [id number] Implanted:Qty: 1 on 03/24/2021 by Jules Johnson MD at [facility] Mesh N/A: Esophagus [employer] [id number] 12/01/2023 [id number] / [id number] / [employer] [id number] Wallstent Rp Unistep Plus 18mm 10fr 90mm 75cm Flexible Delivery - [id number] Implanted:Qty: 1 on 05/20/2019 by Mazin Wright MD at [facility] [employer] [id number] / / [employer] [id number] Wallstent Rp Unistep Plus 18mm 10fr 90mm 75cm Flexible Delivery - [id number] Implanted:Qty: 1 on 05/20/2019 by Mazin Wright MD at [facility] [employer] Ramirez [id number] / / [place] [employer] [id number] Wallstent Unistep Plus 16mm 9fr 60mm 75cm Catheter Unconstrain - [id number] Implanted:Qty: 1 on 05/20/2019 by Mazin Wright MD at [facility] [place] [employer] [id number] / / Insurance MEDICARE [facility] MEDICARE [employer] MEDICARE MEDICARE [facility] [place] [address] Advance Directives For more information, please contact: [phone] * Full Code (Latest Code Status on File) Date Activated Date Inactivated Comments 03/23/2021 2:17 PM 03/26/2021 10:10 PM * Full Code Date Activated Date Inactivated Comments 05/19/2019 11:14 AM 05/23/2019 10:05 PM Care Teams Barking Machine Feeder Relationship Specialty Start Date End Date Mable Knott MD PCP - General 02/17/19 Tahir Coleman DO Consulting Physician Gastroenterology 03/18/21 Lazaro Robledo MD [address] [address] Referring Physician Hematology and Oncology 03/18/21 [place] [id number] [address] Consulting Physician Cardiology 03/18/21
--- OUTSIDE RECORDS SUMMARY | 2024-11-20 09:14 | XMS_ITS | Clinical Summary ---
Author Organization [facility] Address [address] [place] [address] Care Team Providers Care Manager Advanced Name Role Phone Mable Knott MD Primary Care Provider + Tahir Coleman DO Unavailable [phone] Lazaro Robledo MD Unavailable Angelo South MD Unavailable Allergies Active Allergy Reactions Criticality Noted Date Comments Aspirin Hives,Anaphylaxis High 04/02/2018 Fxjnfpb-Ehcdszfuqifot-Vnkmivsg Hives Medium 05/16 Diclofenac-Misoprostol Other (See comments) [...] (PROBIOTIC-10 ORAL) Take 2 tablets by mouth line service supervisor before breakfast Active Ventolin HFA 90 mcg/actuation inhaler INHALE 2 PUFFS BY MOUTH 4 TIMES DAILY NEEDED 03/14/20 Active budesonide-formote roL (SYMBICORT) 160-4.5 mcg/actuation inhaler Symbicort 160-4.5 mcg/actuation HFA aerosol inhaler 10/19/19 Active cholecalciferol (Vitamin D3) 2000 unit capsule Take 1 capsule (2,000 Units total) by mouth line service supervisor before breakfast RESTART in 1 week when able to take pills whole. 04/01/20 Active cyanocobalamin (Vitamin B-12) 500 mcg tablet Take 2 tablets (1,000 mcg total) by mouth line service supervisor before breakfast RESTART in 1 week when able to take pills whole 04/01/20 Active Additional Information Patient not taking.Reported on 04/14/2022 furosemide (LASIX) 20 mg tablet Take 1 tablet (20 mg total) by mouth line service supervisor before breakfast CRUSH pills and take in [...] for nausea or vomiting 20 tablet 03/26/20 21 Active Additional Information Patient [...] (02/03/2021): Added automatically from request for surgery [id number] Hypercalcemia 08/28/2020 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 08/28/2020 Iron deficiency anemia 08/12/2020 Deep vein thrombosis (DVT) of left lower extremi ty 05/15/2019 Overview (05/19/2019): Added automatically from request for surgery [id number] Aortic aneurysm 01/29/2019 Nonrheumatic aortic (valve) stenosis 11/22/2015 Chest pain, unspecified 08/26/2013 Essential (primary) hypertension 07/15/2013 Immunizations Immunization Administration Dates Next Due Moderna SARS-CoV-2 Monovalent Vaccination (12+ Y RS) 09/21/2020,08/24/2020 Surgical History Surgery Date Site/Laterality Comments HEART SURGERY at age 2 CHOLECYSTECTOMY APPENDECTOMY BREAST SURGERY HYSTERECTOMY Medical History Medical History Date Comments COPD (chronic obstructive pu lmonary disease) (HCC) Emphysema (subcutaneous) (mi rgical) resulting from a procedure DVT (deep vein thrombosis) in left leg Emphysema of lung (HCC) GERD (gastroesophageal reflux disease) Enlarged thyroid Depression Anxiety Arthritis Hiatal hernia 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 sta [place] 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 Family History Medical History Relation Name Comments Diabetes Father Breast cancer Mother Breast cancer Sister Relation Name Status Comments Father Mother Sister Alive Social History Tobacco [...] on file 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 Gender Identity Not on file Sexual Orientation Not on file Obstetrics History Last Filed Vital Signs Vital Sign Reading [...] 04/14/2022 12:33 PM CDT Plan of Treatment Health Maintenance Due Date Last Done Comments Breast Cancer Screening-Mammogram 1955 Colon Cancer Screening-Colonoscopy 1955 Depression Screening 1955 Hepatitis C Screening 1955 Osteoporosis Screening-Bone Density Scan 1955 Hepatitis B Screening 12/08/1971 Well Visit 65+ 2018 Fall Risk Assessment 03/26/2022 03/26/2021 Pneumococcal vaccine 65+ (3 of 3 - PCV20 or PCV21) 01/17/2024 01/16/2019, 12/17/2013 Covid-19 Vaccine (3 - 2023-2 5 season) 2024 09/21/2020, 09/21/2020, 08/24/2020 Influenza Vaccine (Season Ended) 2025 03/21/2022, 03/18/2022, 03/14/2021, Additional history exists DTaP/Tdap/Td Vaccine (4 - Td or Tdap) 05/01/2029 05/01/2019, 01/31/2017, 05/20/2008 Zoster Vaccine Completed 03/28/2019, 07/2018, 01/31/2017 Medical Devices Implanted Type Area [employer]ision Repair Instructor Device Identifier Shelf Expiration Date Model / Serial / Lot [employer] [id number] [employer] Bio-A 10x7cm Reinforcement Tissue Mesh Surgical Synthetic - [id number] - [id number] Implanted:Qty: 1 on 03/24/2021 by Jules Johnson MD at [facility] Advanced Medicine Mesh N/A: Esophagus [employer] [id number] 12/01/2023 [id number] / [id number] / [place] [employer] [id number] Wallstent Rp Unistep Plus 18mm 10fr 90mm 75cm Flexible Delivery - [id number] Implanted:Qty: 1 on 05/20/2019 by Mazin Wright MD at [facility] [employer] [id number] / / [employer] [id number] Wallstent Rp Unistep Plus 18mm 10fr 90mm 75cm Flexible Delivery - [id number] Implanted:Qty: 1 on 05/20/2019 by Mazin Wright MD at [facility] [employer] [id number] / / [place] [employer] [id number] Wallstent Unistep Plus 16mm 9fr 60mm 75cm Catheter Unconstrain - [id number] Implanted:Qty: 1 on 05/20/2019 by Mazin Wright MD at [facility] Scientific Ramirez [id number] / / Insurance [facility] Address: [address] [place] [id number] [facility] (Work) [address] [place] [address] MEDICARE [facility] [place] [address] MEDICARE MEDICARE [facility] Address: [address] [address] [facility] [place] [address] Advance Directives For more information, please contact: [phone] * Full Code (Latest Code Status on File) Date Activated Date Inactivated Comments 03/23/2021 2:17 PM 03/26/2021 10:10 PM * Full Code Date Activated Date Inactivated Comments 05/19/2019 11:14 AM 05/23/2019 10:05 PM Care Teams Manager Advanced Relationship Specialty Start Date End Date Mable Knott MD PCP - General 02/17/19 Tahir Coleman DO Consulting Physician Gastroenterology 03/18/21 Lazaro Robledo MD [address] [address] Referring Physician Hematology and Oncology 03/18/21 [place] [id number] [address] Consulting Physician Cardiology 03/18/21
--- NOTE | 2024-11-21 09:31 | WPDSIXMINUTE ---
Six Minute Walk Procedure Procedure Performed Pulmonary Stress Test (6 min walk) Six Minute Walk Six Minute Walk: This is a 6 minute walk test. The test was performed and interpreted in accordance with the 2014 ERS/ATS task force guidelines. Findings: The patient's resting room air oxygen saturation measured by pulse oximetry was 97%, the heart rate was 79 bpm, and the modified Raghavendra dyspnea score was 0. Patient ambulated for 274 meters and oxygen saturation remained 96 to 99%. At the end of the study the heart rate was 103 bpm and the modified Raghavendra dyspnea score was 3. The patient did not qualify for supplemental oxygen at rest or with ambulation. There are no prior studies for comparison.
--- NOTE | 2024-11-21 09:32 | WPDPFTINT ---
PFT Procedure Performed PFT Procedure Performed Spirometry with Pre/Post Bronchodilator Plethysmography (Lung Vol) Diffusing Cap (DLCO) Flow Vol Loop PFT Interpretation This is a pulmonary function test with pre and post-bronchodilator spirometry, plethysmography and diffusing capacity. The test was performed and results interpreted in accordance with the 2019 and 2005 ATS/ERS Task Force guidelines respectively using the Global Lung Function Initiative-2012 reference equations. Patient demonstrated good effort and cooperation. Reproducibility criteria were met. The quality of the pre bronchodilator spirometry maneuver was Grade A and post bronchodilator spirometry maneuver was Grade A. Findings: Spirometry: There is decreased maximal expiratory airflow at all lung volumes with concave expiratory flow tracing. The contour the inspiratory flow tracing is normal. The pre bronchodilator FVC is 2.19 L, 74% predicted. The pre bronchodilator FEV1 is 1.23 L, 54% predicted. The pre bronchodilator FEV1: FVC ratio is 56%. The post bronchodilator FVC is 2.57 L, representing a 17% increase. The post bronchodilator FEV1 1.38, representing a 12% increase. The post bronchodilator FEV1: FVC ratio is 54%. Plethysmography: The total lung capacity is 4.58 L, 88% predicted. The functional residual capacity is 2.46 L, 83% predicted. The residual volume is 1.98 L, 88% predicted. Diffusing capacity: The diffusing capacity unadjusted for hemoglobin and carboxyhemoglobin is 13.2, 63% predicted. The diffusing capacity adjusted for alveolar volume is 3.81, 90% predicted. Impression: There is a moderately severe obstructive abnormality. There is significant improvement after inhaling a single dose of albuterol. The lung volumes are normal. The diffusing capacity unadjusted for hemoglobin and carboxyhemoglobin is mildly decreased and normalizes when adjusted for alveolar volume. There are no prior studies for comparison
== END 2024-11-20 09:10 | disposition home or self-care (01) ==
PROVIDERS: PCP Nurse Practitioner; Visit Provider Nurse Practitioner Family
DX: J43.9 Emphysema, unspecified (principal); R91.8 Other nonspecific abnormal finding of lung field; I71.21 Aneurysm of the ascending aorta, without rupture
CPT/HCPCS: 71250; 94060; 94618; 94726; 94729

== ENCOUNTER 2024-12-26 09:23 | Day surgery (SDC) | payer MEDICARE, OTHER, SELFPAY ==
[2024-12-15 10:47] VITALS: BMI 26.6
[2024-12-26 09:43] VITALS: BP 121/86; PULSE 91; RESP 16; TEMP 36.1; O2SAT 91
[2024-12-26 09:44] VITALS: BMI 27.1
[2024-12-26] MEDS: LACTATED RINGERS 1,000 ML 150 ML IV CONT (10:11)
--- NOTE | 2024-12-26 10:34 | WPDANESEPPF ---
Anes - Initial Pre Proc Eval Procedure: Operation Date: 12/26/24 11:30 Proposed Procedures p Screening Colonoscopy - Vance Sparrow MD Date/Time: 12/26/24 10:34 Surgeon: Vance Sparrow MD Pre Op Diagnosis: Screening Patient Data Age: 69 Gender: F Height: 1.65 m Weight: 74 kg Last Vital Signs Temp 36.1 C L 12/26/24 09:43 Pulse 91 12/26/24 09:43 Resp 16 12/26/24 09:43 BP 121/86 12/26/24 09:43 Pulse Ox 91 12/26/24 09:43 O2 Del Method Room Air 12/26/24 09:43 Allergies Allergy/AdvReac Type Severity Reaction Status Date / Time MOTRIN AND ASPIRIN Allergy Unknown Anaphylaxis Uncoded 12/26/24 09:40 NONE Allergy Unknown Anaphylaxis Uncoded 12/26/24 09:40 SALICYLATES Allergy Unknown Anaphylaxis Uncoded 12/26/24 09:40 ASPIRIN (Generic Allergy) Allergy Y Uncoded 12/26/24 09:40 IBUPROFEN (Generic Allergy) Allergy Y Uncoded 12/26/24 09:40 NONSTEROIDAL Allergy Anaphylaxis Uncoded 12/26/24 09:40 Home Medications ?Medication ?Instructions ?Recorded ?Confirmed ?Type albuterol sulfate 90 mcg/actuation 1 puff inhalation DAILY PRN 10/31/24 12/15/24 History aerosol inhaler shortness of breath or wheezing apixaban 5 mg tablet (Eliquis) 5 mg PO BID 10/31/24 12/26/24 History buspirone 10 mg tablet 20 mg PO BID 10/31/24 12/26/24 History furosemide 20 mg tablet 20 mg PO DAILY 10/31/24 12/15/24 History venlafaxine 150 mg 150 mg PO DAILY 10/31/24 12/26/24 History capsule,extended release 24 hr umeclidinium 62.5 mcg-vilanterol 1 inh inhalation Q24H #60 ea 12/08/24 12/26/24 Rx 25 mcg/actuation powdr for inhalation (Anoro Ellipta) Patient hx anesthesia problems: none Family hx anesthesia problems: none Results Review: All pre-operative results and documents have been reviewed as part of the pre-operative evaluation. FORMERLY [facility], 1928[facility] Past Medical History Medical History DVT (deep venous thrombosis) Aortic stenosis Depression Anxiety HTN (hypertension) Surgical History Surgical History H/O ventricular septal defect repair age 2 Social History Social History Smoking packs per day: 1 Smoking cigarettes per day: 20.0 Years smoked: 15 Smoking pack-years: 15.00 Smoking status: Former smoker Tobacco type: cigarettes Smoking end date: 07/02/99 Alcohol intake: current Substance use: never Substance use type: does not use Anes - Eval Final PreProcedure Day of Procedure 12/26/24 10:34 Patient weight: overweight Heart: regular rate and rhythm Lungs: decreased breath sounds Airway: Mallampati scale class II Neurological: alert and oriented Last oral intake: >/= 8 hours ASA classification: III Emergent: no Anesthetic plan: proceed Anesthesia type and monitoring: general GIVS and standard monitoring Results Review: All pre-operative results and documents have been reviewed as part of the pre-operative evaluation. Informed Consent: The patient's anesthetic plan and its attendant risks and benefits were discussed with the patient/family/POA. Questions were solicited and answers provided to the satisfaction of the patient/family/POA.
--- NOTE | 2024-12-26 11:02 | PM.IMHP ---
H&P: HPI History of Present Illness Date/Time: 12/26/24 11:02 Chief Complaint: Screening colonoscopy Narrative: This is the patient's 3rd colonoscopy. There are no GI symptoms and there is no family history of colorectal cancer. Review of Systems Review of Systems: All systems reviewed & are unremarkable except as noted in HPI and below PMFSH Past Medical History Medical History DVT (deep venous thrombosis) Aortic stenosis Depression Anxiety HTN (hypertension) Surgical History Surgical History H/O ventricular septal defect repair age 2 Social History Social History Smoking packs per day: 1 Smoking cigarettes per day: 20.0 Years smoked: 15 Smoking pack-years: 15.00 Smoking status: Former smoker Tobacco type: cigarettes Smoking end date: 07/02/99 Alcohol intake: current Substance use: never Substance use type: does not use Meds Home Medications and Allergies Home Medications ?Medication ?Instructions ?Recorded ?Confirmed ?Type albuterol sulfate 90 mcg/actuation 1 puff inhalation DAILY PRN 10/31/24 12/15/24 History aerosol inhaler shortness of breath or wheezing apixaban 5 mg tablet (Eliquis) 5 mg PO BID 10/31/24 12/26/24 History buspirone 10 mg tablet 20 mg PO BID 10/31/24 12/26/24 History furosemide 20 mg tablet 20 mg PO DAILY 10/31/24 12/15/24 History venlafaxine 150 mg 150 mg PO DAILY 10/31/24 12/26/24 History capsule,extended release 24 hr umeclidinium 62.5 mcg-vilanterol 1 inh inhalation Q24H #60 ea 12/08/24 12/26/24 Rx 25 mcg/actuation powdr for inhalation (Anoro Ellipta) Allergies Allergy/AdvReac Type Severity Reaction Status Date / Time MOTRIN AND ASPIRIN Allergy Unknown Anaphylaxis Uncoded 12/26/24 09:40 NONE Allergy Unknown Anaphylaxis Uncoded 12/26/24 09:40 SALICYLATES Allergy Unknown Anaphylaxis Uncoded 12/26/24 09:40 ASPIRIN (Generic Allergy) Allergy Y Uncoded 12/26/24 09:40 IBUPROFEN (Generic Allergy) Allergy Y Uncoded 12/26/24 09:40 NONSTEROIDAL Allergy Anaphylaxis Uncoded 12/26/24 09:40 Vital Signs Vital Signs - 24 hr 12/26/24 09:43 Temperature 97 F L Pulse Rate 91 Respiratory Rate 16 Blood Pressure 121/86 Pulse Oximetry 91 Oxygen Delivery Room Air Exam Const: General: cooperative and healthy appearing Resp: Effort & Inspection: normal respiratory effort and able to speak in complete sentences Auscultation: clear to auscultation bilaterally Cardio: Rate: regular rate Rhythm: regular rhythm GI: Inspection: normal to inspection GI Palp: No No hepatosplenomegaly present Auscultation: normal bowel sounds Rectal Exam: deferred Skin: General skin exam: normal color Psych: Appearance: grossly normal Mental Status: mental status grossly normal Assessment and Plan Assessment and plan (1) Encounter for screening colonoscopy: Code(s): Z12.11 - Encounter for screening for malignant neoplasm of colon Status: Acute Assessment and Plan: The patient is deemed a good candidate for the procedure. Consent signed. Will proceed.
[2024-12-26] MEDS: SIMETHICONE ORAL SUSPENSION 20 MG/0.3 ML 30 ML BOTTLE 0.6 ML IRRIGATION (11:13)
[2024-12-26 11:28] VITALS: BP 87/57; PULSE 67; RESP 15; O2SAT 100
[2024-12-26 11:38] VITALS: BP 95/67; PULSE 68; RESP 21; O2SAT 99
[2024-12-26 11:48] VITALS: BP 112/65; PULSE 63; RESP 20; O2SAT 99
== END 2024-12-26 12:04 | disposition home or self-care (01) ==
PROVIDERS: PCP Nurse Practitioner; Referring Provider Nurse Practitioner; Visit Provider Internal Medicine Gastroenterology
PROC: 0DJD8ZZ Inspection of Lower Intestinal Tract, Via Natural or Artificial Opening Endoscopic (ICD-10-PCS; CPT 45378; principal; 2024-12-26 11:30)
DX: Z12.11 Encounter for screening for malignant neoplasm of colon (principal); K57.30 Diverticulosis of large intestine without perforation or abscess without bleeding; Z87.891 Personal history of nicotine dependence
CPT/HCPCS: G0121; J2003; J2704; J7120

== ENCOUNTER 2025-04-23 14:28 | Outpatient (CLI) | payer MEDICARE, OTHER, SELFPAY ==
--- NOTE | ~2025-04-23 | MM_ITS ---
EXAMINATION: MM screening [facility] BI w mandy HISTORY: Screening TECHNIQUE: Craniocaudal and mediolateral oblique 3-D tomosynthesis images were obtained and synthetic 2-D images were generated. CAD analysis was submitted and interpreted. COMPARISON: Comparison to multiple prior studies sequentially, with oldest reviewed study dated 03/28/2018. BREAST PARENCHYMAL COMPOSITION: The breasts are heterogeneously dense, which may obscure small masses. FINDINGS: There is no evidence of suspicious mass, calcification, or architectural distortion to suggest malignancy in either breast. Scattered benign-appearing calcifications are present. IMPRESSION: 1. No mammographic evidence of malignancy. 2. Recommend routine screening mammography in one year. BI-RADS Category 2: Benign finding(s). Reviewed, dictated and finalized at location B.
== END 2025-04-23 14:29 | disposition home or self-care (01) ==
LOC: ANHFOHIMG 14:30
PROVIDERS: PCP Nurse Practitioner; Visit Provider Nurse Practitioner
DX: Z12.31 Encounter for screening mammogram for malignant neoplasm of breast (principal)
CPT/HCPCS: 77063; 77067